=== PATIENT | male | born 1955 | race Hispanic/Latino ===

== ENCOUNTER 2016-05-23 11:14 | Emergency (ER) | payer OTHER ==
[2016-05-23 11:14] VITALS: BMI 21.2
[2016-05-23 11:23] VITALS: TEMP 98.1
--- NOTE | 2016-05-23 12:54 | C.PDOC ---
History Of Present Illness 61 y/o male, whose PMHx includes hypertension and hypercholesterolemia, presents to the ED complaining of pain in the last side of his neck that radiates to the left arm x 3 weeks. He also reports intermittent sensation of numbness in the left hand. Patient notes that for the last few days he has been feeling "sluggish," fatigued, and slightly short of breath. He states that he left work today because he was feeling so fatigued and he wanted to lie down. Patient denies any abdominal pain, chest pain, fever, chills, headache, rash, vomiting, diaphoresis, or other complaints. Time Seen by Provider: 05/23/16 12:42 Chief Complaint (Nursing): Upper Extremity Problem/Injury History Per: Patient History/Exam Limitations: no limitations Onset/Duration Of Symptoms: Days (3 weeks), Gradual, Persistent Current Symptoms Are (Timing): Still Present Recent travel outside of the [place]: No Past Medical History Reviewed: Historical Data, Nursing Documentation, Vital Signs Vital Signs: Last Vital Signs Temp 98.1 F 05/23/16 11:23 Pulse 83 05/23/16 15:08 Resp 18 05/23/16 15:08 BP 158/81 H 05/23/16 15:08 Pulse Ox 98 05/23/16 16:01 - Medical History PMH: Anxiety, Depression, Gastritis, GERD, HTN, Hypercholesterolemia Surgical History: No Surg Hx - [facility] Procedures GROUP PSYCHOTHERAPY (03/23/16) INDIVIDUAL PSYCHOTHERAPY, SUPPORTIVE (03/23/16) Family History: States: Unknown Family Hx - Social History Hx Tobacco Use: Yes Hx Alcohol Use: Yes Hx Substance Use: No - Immunization History Hx Tetanus Toxoid Vaccination: No Hx Influenza Vaccination: No Hx Pneumococcal Vaccination: No Review Of Systems Except As Marked, All Systems Reviewed And Found Negative. Constitutional: Positive for: Other (fatigue). Negative for: Fever, Chills, Sweats Cardiovascular: Negative for: Chest Pain Respiratory: Positive for: Shortness of Breath (mild) Gastrointestinal: Negative for: Vomiting, Abdominal Pain Musculoskeletal: Positive for: Neck Pain (left), Arm Pain (left) Skin: Negative for: Rash Neurological: Positive for: Numbness (left hand). Negative for: Headache Physical Exam - Physical Exam Appears: Non-toxic, No Acute Distress Skin: Normal Color, Warm, Dry, No Rash Head: Atraumatic, Normacephalic Eye(s): bilateral: Normal Inspection, PERRL, EOMI Neck: Normal ROM, No Midline Cervical Tenderness, No Paracervical Tenderness, Supple, Other (reproducible pain with contralateral movement of the head) Chest: Symmetrical Cardiovascular: Rhythm Regular Respiratory: Normal Breath Sounds, No Rales, No Rhonchi, No Wheezing Gastrointestinal/Abdominal: Normal Exam, Soft, No Tenderness Extremity: Normal ROM, No Tenderness, No Swelling Pulses: Left Radial: Normal, Right Radial: Normal Neurological/Psych: Oriented x3, Normal Speech, Normal Cognition, Normal Motor, Normal Sensation ED Course And Treatment - Laboratory Results Result Diagrams: 05/23/16 13:20 05/23/16 13:20 ECG: Interpreted By Me ECG Rhythm: Sinus Rhythm Interpretation Of ECG: left axis deviation, T inversion in lead III Rate From EC (bpm) O2 Sat by Pulse Oximetry: 98 (ra) Pulse Ox Interpretation: Normal - Other Rad Chest X-Ray X-Ray: Viewed By Me, Read By Radiologist Interpretation: Accession No. : [id number]. Patient Name / ID : EMMANUEL CHRISTIE / [id number]. Exam Date : 05/23/2016 13:13:41 ( Approved ). Study Comment : Sex / Age : M / 61Y. Creator : Manolo Zurita MD. Dictator : Manolo Zurita MD. Bit Sander : Popcorn Vendor : Manolo Zurita MD. Approver2 : Report Date : 05/23/2016 14:17:39. My Comment : . PROCEDURE: CHEST RADIOGRAPH, 1 VIEW. HISTORY: left neck pain, radiates to left arm. COMPARISON: [place] of made with prior study 03/21/2016. FINDINGS: LUNGS: Mild biapical pleural thickening with what may represent some mild adjacent the scarring in the lung apices bilaterally right greater than left. PLEURA: No pneumothorax or pleural fluid seen. CARDIOVASCULAR: Normal. OSSEOUS STRUCTURES: No significant abnormalities. VISUALIZED UPPER ABDOMEN: Normal. OTHER FINDINGS: None. IMPRESSION: Mild biapical pleural thickening with what may represent some mild adjacent the scarring in the lung apices bilaterally right greater than left. X-Ray, C-Spine X-Ray: Viewed By Me, Read By Radiologist Interpretation: Accession No. : [id number]. Patient Name / ID : EMMANUEL CHRISTIE / [id number]. Exam Date : 05/23/2016 13:16:43 ( Approved ). Study Comment : Sex / Age : M / 61Y. Creator : Manolo Zurita MD. Dictator : Manolo Zurita MD. Bit Sander : Popcorn Vendor : Manolo Zurita MD. Approver2 : Report Date : 05/23/2016 14:24:50. My Comment : . Cervical spine dated 05/23/2016. History: Neck pain radiating to left arm. Three views of the cervical spine performed. Note that the examination is somewhat limited due partial obscuration of tip of the odontoid by overlying occiput in the open- mouth projection. Current study reveals no evidence of acute displaced or compression fracture. . Minor chronic anterior stature loss of several cervical segments felt to be degenerative in origin. Vertebral bodies otherwise exhibit normal stature. The slight post to subluxation of C3 over C4. Remaining vertebral bodies otherwise exhibit normal alignment. Facets normally aligned. Multilevel degenerative spondylosis. Changes include varying degrees of disc space narrowing with anterolateral osteophyte formation as well as hypertrophic uncovertebral facets. Vascular calcifications both carotid circulations suspect. Impression: Limited study. No fracture. Multilevel degenerative spondylosis. Progress Note: EKG, chest x-ray, x-ray of the c-spine, blood work, and troponin were ordered. Patient was given Aspirin PO. Patient states that he needs to go home because he has something very important to do. Advised that symptoms may be due to a cardiac issue and patient was offered to stay for Tele observation. Risks were discussed with the patient who expresses understanding and states he would like to sign out against medical advice. Patient states he will return to the ED if he continues to feel unwell. Disposition - Disposition Disposition: AGAINST MEDICAL ADVICE Disposition Time: 15:55 Condition: GUARDED Additional Instructions: Follow up with your PMD within 1-2 days. Return to ED immediately if feel worse. Prescriptions: traMADol [Ultram] 50 mg PO Q6 #30 tab Instructions: Weakness (ED), Cervical Radiculopathy (ED) - Clinical Impression Clinical Impression: Neck pain, Weakness, Left arm numbness - PA / PUBLISHING EDITOR / Resident Statement MD/DO has reviewed & agrees with the documentation as recorded. - Scribe Statement The provider has reviewed the documentation as recorded by the Scribe (Micaela Rea) All medical record entries made by the Scribe were at my direction and personally dictated by me. I have reviewed the chart and agree that the record accurately reflects my personal performance of the history, physical exam, medical decision making, and the department course for this patient. I have also personally directed, reviewed, and agree with the discharge instructions and disposition.
[2016-05-23] MEDS ORDERED: Aspirin 325 mg EC Tablets PO STA (13:14)
[2016-05-23] MEDS ORDERED: Aspirin 325 mg EC Tablets PO ONE (13:23)
[2016-05-23 13:29] LABS: BASO % 0.5 % (0.0-2.0); EOS # 0.3 K/uL (0.0-0.7); EOS % 2.8 % (0.0-4.0); HEMATOCRIT 40.8 % (35.0-51.0); LYMPH # 1.8 K/uL (1.0-4.3); LYMPH % 17.6 % (20.0-40.0); MEAN CELL VOLUME 88.1 fL (80.0-94.0); MEAN CORPUSCULAR HEMOGLOBIN 29.2 pg (27.0-31.0); MEAN CORPUSCULAR HGB CONC 33.2 g/dL (33.0-37.0); MEAN PLATELET VOLUME 7.8 fL (7.2-11.7); MONO # 0.6 K/uL (0.0-0.8); MONO % 5.9 % (0.0-10.0); RED CELL DISTRIBUTION WIDTH 15.5 % (11.5-14.5)
[2016-05-23 13:36] LABS: CHLORIDE 102 mmol/L (98-107); SODIUM 141 mmol/L (132-148)
[2016-05-23 13:37] LABS: POTASSIUM 3.7 mmol/L (3.6-5.2)
[2016-05-23 13:39] LABS: ALB/GLOB RATIO 1.1 (1.0-2.1); ALKALINE PHOSPHATASE 71 U/L (38-126); AST/SGOT 21 U/L (17-59); BILIRUBIN,TOTAL 0.5 mg/dL (0.2-1.3); BLOOD UREA NITROGEN 23 mg/dL (9-20); CARBON DIOXIDE 28 mmol/L (22-30); GFR AFRICAN-AMERICAN > 60; TOTAL PROTEIN 7.6 g/dL (6.3-8.3)
[2016-05-23 13:40] LABS: ALT/SGPT 26 U/L (21-72); CALCIUM 8.9 mg/dl (8.6-10.4); GLUCOSE,RANDOM 102 mg/dL (75-110)
--- NOTE | 2016-05-23 14:19 | RAD ---
PROCEDURE: CHEST RADIOGRAPH, 1 VIEW HISTORY: left neck pain, radiates to left arm COMPARISON: [place] of made with prior study 03/21/2016 FINDINGS: LUNGS: Mild biapical pleural thickening with what may represent some mild adjacent the scarring in the lung apices bilaterally right greater than left. PLEURA: No pneumothorax or pleural fluid seen. CARDIOVASCULAR: Normal. OSSEOUS STRUCTURES: No significant abnormalities. VISUALIZED UPPER ABDOMEN: Normal. OTHER FINDINGS: None. IMPRESSION: Mild biapical pleural thickening with what may represent some mild adjacent the scarring in the lung apices bilaterally right greater than left.
--- NOTE | 2016-05-23 14:26 | RAD ---
Cervical spine dated 05/23/2016. History: Neck pain radiating to left arm. Three views of the cervical spine performed. Note that the examination is somewhat limited due partial obscuration of tip of the odontoid by overlying occiput in the open-mouth projection. Current study reveals no evidence of acute displaced or compression fracture. . Minor chronic anterior stature loss of several cervical segments felt to be degenerative in origin. Vertebral bodies otherwise exhibit normal stature. The slight post to subluxation of C3 over C4. Remaining vertebral bodies otherwise exhibit normal alignment. Facets normally aligned. Multilevel degenerative spondylosis. Changes include varying degrees of disc space narrowing with anterolateral osteophyte formation as well as hypertrophic uncovertebral facets. Vascular calcifications both carotid circulations suspect Impression: Limited study. No fracture. Multilevel degenerative spondylosis.
[2016-05-23 15:09] VITALS: BP 158/81; PULSE 83; RESP 18
[2016-05-23 15:40] VITALS: O2SAT 98
--- NOTE | 2016-05-24 11:58 | CARD ---
APPROVED REPORT EKG Measurement Heart [id number] <Conclusion> Normal sinus rhythm Left axis deviation Abnormal ECG
== END 2016-05-23 16:05 | disposition left against medical advice (07) ==
LOC: C.ER 11:14
DX: M54.2 Cervicalgia (principal); R53.1 Weakness; R20.0 Anesthesia of skin

== ENCOUNTER 2016-06-10 11:04 | Inpatient (IN) | payer OTHER ==
[2016-06-10 11:09] VITALS: BMI 24.3
--- NOTE | 2016-06-10 11:13 | C.PDOC ---
History Of Present Illness 61-year-old male, is brought to the emergency department by EMS with complaints of a burning chest pain, intermittent in nature, that is non-radiating and rated 9/10. Patient states he developed the pain this morning, and it worsened when he got to work, associated with dizziness and nausea; blood pressure 127/ 87. Patient was given Aspirin, Zofran and IVF en route. Patient is NPO since 23 :00 last night. Chief Complaint (Nursing): Chest Pain History Per: Patient History/Exam Limitations: no limitations Onset/Duration Of Symptoms: Days Current Symptoms Are (Timing): Still Present Past Medical History Reviewed: Historical Data, Nursing Documentation, Vital Signs Vital Signs: Last Vital Signs Temp 98.2 F 06/12/16 08:00 Pulse 77 06/12/16 08:24 Resp 20 06/12/16 08:00 BP 128/72 06/12/16 08:00 Pulse Ox 97 06/12/16 08:00 - Medical History PMH: Anxiety, Depression, Gastritis, GERD, HTN, Hypercholesterolemia Denies: Diabetes, Hepatitis, HIV, Seizures, Sexually Transmitted Disease - [facility] Procedures GROUP PSYCHOTHERAPY (03/23/16) INDIVIDUAL PSYCHOTHERAPY, SUPPORTIVE (03/23/16) Family History: States: Unknown Family Hx - Social History Hx Tobacco Use: Yes Hx Alcohol Use: Yes Hx Substance Use: No - Immunization History Hx Tetanus Toxoid Vaccination: No Hx Influenza Vaccination: No Hx Pneumococcal Vaccination: No Review Of Systems Except As Marked, All Systems Reviewed And Found Negative. Constitutional: Negative for: Fever, Chills Cardiovascular: Positive for: Chest Pain Respiratory: Negative for: Shortness of Breath Gastrointestinal: Negative for: Nausea, Vomiting Musculoskeletal: Negative for: Neck Pain, Back Pain Skin: Negative for: Rash Neurological: Positive for: Dizziness. Negative for: Weakness, Numbness, Headache Physical Exam - Physical Exam Appears: Non-toxic, No Acute Distress (mild distress) Skin: Warm, Dry, No Rash Head: Atraumatic, Normacephalic Eye(s): bilateral: Normal Inspection, PERRL, EOMI Nose: Normal Oral Mucosa: Moist Lips: Normal Appearing Neck: Normal ROM Chest: Symmetrical Cardiovascular: Rhythm Regular Respiratory: Normal Breath Sounds, No Accessory Muscle Use Extremity: Normal ROM, No Pedal Edema Neurological/Psych: Oriented x3, Normal Speech ED Course And Treatment - Laboratory Results Result Diagrams: 06/12/16 06:40 06/12/16 06:40 ECG: Interpreted By Me, Viewed By Me ECG Rhythm: Sinus Rhythm Interpretation Of ECG: EKbpm. ST elevation in II, III and AVF. T wave inverssion in AVL - Radiology CXR: Interpreted by Me, Viewed By Me CXR Interpretation: Yes: No Acute Disease (compared to 05/23/16) Progress - Re-Evaluation Re-evaluation Note: 06/10/16 11:12 DR BRUNER @ BEDSIDE, WILL TAKE TO FLAT BREAKDOWN PROCESSOR 06/10/16 11:34 PENDING CATH TEAM ARRIVAL. EXAM UNCH, VSS. CO PERSIST PAIN. WILL DOSE NARCOTIC, CONT IVF - Data Reviewed Data Reviewed: Lab, Diagnostic imaging, EKG, Old records - Critical Care Citical Care: Excluding Proc Time Critical Care Time: 90 minutes - Continuity of Care Discussed patient case with:: Patient Discussed pt. case with [employer] consultant/specialty: Cardiology Disposition Counseled Patient/Family Regarding: Studies Performed, Diagnosis - Disposition Disposition: HOSPITALIZED Disposition Time: 11:12 Condition: CRITICAL - POA Present On Arrival: None - Clinical Impression Clinical Impression: Acute myocardial infarction - Scribe Statement The provider has reviewed the documentation as recorded by the Scribe [place] All medical record entries made by the Scribe were at my direction and personally dictated by me. I have reviewed the chart and agree that the record accurately reflects my personal performance of the history, physical exam, medical decision making, and the department course for this patient. I have also personally directed, reviewed, and agree with the discharge instructions and disposition. Decision To Admit - Pt Status Changed To: Hospital Disposition Of: Inpatient - Admit Certification Admit to Inpatient:: After my assessment, the patient will require hospitalization for at least two midnights. This is because of the severity of symptoms shown, intensity of services needed, and/or the medical risk in this patient being treated as an outpatient. - InPatient: Physician Admission Certification: I certify that this patient requires 2 or more midnights of care for the following reason:: SEE NOTE - . Bed Request Type: ICU Admitting Physician: Jonel Mcdaniels Patient Diagnosis: Acute myocardial infarction
[2016-06-10 11:22] LABS: BASO # 0.1 K/uL (0.0-0.2); BASO % 0.5 % (0.0-2.0); EOS # 0.3 K/uL (0.0-0.7); LYMPH # 2.2 K/uL (1.0-4.3); MEAN PLATELET VOLUME 7.5 fL (7.2-11.7); MONO # 0.7 K/uL (0.0-0.8)
[2016-06-10 11:27] LABS: EOS % 2.9 % (0.0-4.0); HEMATOCRIT 42.2 % (35.0-51.0); LYMPH % 19.5 % (20.0-40.0); MEAN CELL VOLUME 88.6 fL (80.0-94.0); MEAN CORPUSCULAR HEMOGLOBIN 29.4 pg (27.0-31.0); MEAN CORPUSCULAR HGB CONC 33.2 g/dL (33.0-37.0); RED CELL DISTRIBUTION WIDTH 15.8 % (11.5-14.5); WHITE BLOOD COUNT 11.3 K/uL (4.8-10.8)
[2016-06-10 11:29] LABS: CHLORIDE 100 mmol/L (98-107); POTASSIUM 3.7 mmol/L (3.6-5.2); SODIUM 141 mmol/L (132-148)
--- NOTE | 2016-06-10 11:29 | RAD ---
PROCEDURE: CHEST RADIOGRAPH, 1 VIEW HISTORY: chest pain COMPARISON: 05/23/2016 FINDINGS: LUNGS: Biapical pleural thickening with upper lobe granulomatous changes. Mild venous congestion. Multiple wires and rounded opacity projects at the left base likely external. Clinical correlation. PLEURA: No pneumothorax or pleural fluid seen. CARDIOVASCULAR: Normal. OSSEOUS STRUCTURES: No significant abnormalities. VISUALIZED UPPER ABDOMEN: Normal. OTHER FINDINGS: None. IMPRESSION: Biapical pleural thickening with upper lobe granulomatous changes. Mild venous congestion. Multiple wires and rounded opacity projects at the left base likely external. Clinical correlation.
[2016-06-10 11:31] LABS: GFR AFRICAN-AMERICAN > 60
[2016-06-10] MEDS ORDERED: Heparin25000 units/250ml 1/2NS 250 ML IV ONE (11:33)
[2016-06-10] MEDS ORDERED: Sodium Chloride 0.9% 1,000 ML IV ONE (11:34)
[2016-06-10 11:52] LABS: ALB/GLOB RATIO 1.3 (1.0-2.1); ALKALINE PHOSPHATASE 85 U/L (38-126); ALT/SGPT 23 U/L (21-72); AST/SGOT 27 U/L (17-59); BILIRUBIN,TOTAL 0.9 mg/dL (0.2-1.3); BLOOD UREA NITROGEN 22 mg/dL (9-20); CARBON DIOXIDE 26 mmol/L (22-30); CHOLESTEROL 192 mg/dL (0-199); GLUCOSE,RANDOM 135 mg/dL (75-110); TOTAL PROTEIN 8.4 g/dL (6.3-8.3)
[2016-06-10 11:53] LABS: CALCIUM 9.3 mg/dl (8.6-10.4)
[2016-06-10] MEDS ORDERED: DiphenhydrAMINE 50 mg/ml Inj ONE (11:54)
[2016-06-10] MEDS ORDERED: Iohexol 350mgl/ml 50 ML ONE (12:02)
[2016-06-10] MEDS ORDERED: Iodixanol 320 MG/ML 200 ML BOTTLE IV ONE (12:11)
[2016-06-10] MEDS ORDERED: Iodixanol 320 MG/ML 100 ML BOTTLE IV ONE (12:55)
--- NOTE | 2016-06-10 14:15 | CP.PCM.CON ---
<Mayo Hummel - Last Filed: 06/10/16 17:56> History of Present Illness - History of Present Illness History of Present Illness: MEDICINE CONSULT NOTE - Dr. Bravo CC: recovering s/p cardiac cath, no acute complaints. HPI: 61-year-old male, with PMHx HTN, Hypercholesterolemia, Anxiety/Depression, Gastritis - is brought to the emergency department by EMS with complaints of a burning chest pain, intermittent in nature, that is non-radiating and rated 9/ 10. Patient states he woke up this morning feeling well, and developed sudden sharp chest pain when he got to work at 10am. He has never had chest pain like this before, and there is associated dizziness and nausea. Patient reports a recent 2 month history of on/off chest pain associated with lethargy/weakness, for which he has been taking ASA without relief. His PMD recommended a stress test and carrotid dopplers, which he has scheduled for a later date. Patient denies f/c, change in vision, SOB, abdominal pain, vomiting, d/c, dysuria, recent travel, or any additional complaints. ED course: Patient was given Aspirin, Zofran and IVF en route. EKG revealed ST elevation of inferior leads. He underwent catheterization with stent placement of RCA (100% occlusion), high grade occlusion of LAD. PMHx: HTN, Hypercholesterolemia, Anxiety/Depression, Gastritis (recent GI bleed) , Left Ear Tinnitus NKDA PSHx: denied FMHx: mother has DM Social: active marajuana use, one joint a day for > 20 years, current smoker with more than 20 pack years, ETOH 6-7 cans of beer in one session 1xper week ( 20yr history). PMD: Dr. Jeremias Montaño Review of Systems - Constitutional Constitutional: absent: Chills, Fever, Headache - EENT Eyes: absent: Blurred Vision, Change in Vision Ears: Dizziness. absent: Decreased Hearing, Ear Discharge Nose/Mouth/Throat: absent: Nasal Congestion, Nasal Discharge - Cardiovascular Cardiovascular: Chest Pain. absent: Dyspnea - Gastrointestinal Gastrointestinal: absent: Abdominal Pain, Constipation, Diarrhea, Nausea, Vomiting - Genitourinary Genitourinary: absent: Difficulty Urinating, Dysuria - Musculoskeletal Musculoskeletal: absent: Arthralgias, Atrophy - Integumentary Integumentary: absent: Dry Skin, Rash, Sores, Swelling - Neurological Neurological: Dizziness. absent: Numbness, Focal Weakness, Vertigo - Psychiatric Psychiatric: absent: Anhedonia, Anxiety, Depression - Hematologic/Lymphatic Hematologic: absent: Easy Bleeding, Easy Bruising, Lymphadenopathy Past Patient History - Infectious Disease Hx of Infectious Diseases: None - Past Social History Smoking Status: Current Some Days Smoker - CARDIAC Hx Hypercholesterolemia: Yes Hx Hypertension: Yes - PULMONARY Hx Tuberculosis: No - NEUROLOGICAL Hx Seizures: No - HEMATOLOGICAL/ONCOLOGICAL Hx Human Immunodeficiency Virus (HIV): No - GASTROINTESTINAL Hx Gastritis: Yes - GENITOURINARY/GYNECOLOGICAL Hx Sexually Transmitted Disorders: No - PSYCHIATRIC Hx Anxiety: Yes Hx Depression: Yes Hx Substance Use: No - SURGICAL HISTORY Hx Surgeries: Yes Other/Comment: ENDOSCOPY AND COLONOSCOPY - ANESTHESIA Hx Anesthesia: Yes Hx Anesthesia Reactions: No Meds Allergies/Adverse Reactions: Allergies Allergy/AdvReac Type Severity Reaction Status Date / Time No Known Allergies Allergy Verified 06/10/16 11:26 - Medications Medications: Current Medications Aspirin (Aspirin Chewable) 81 mg PO DAILY JENY Famotidine (Pepcid) 20 mg PO DAILY [facility] Lactated Ringer's (Lactated Ringer's) 1,000 mls @ 75 mls/hr IV .[id number] [facility] Stop: 06/11/16 08:00 Rosuvastatin Calcium (Crestor) 40 mg PO HS JENY Ticagrelor (Brilinta) 90 mg PO BID [facility] Physical Exam - Additional Findings Additional findings: - Constitutional Appears: Non-toxic, No Acute Distress - Head Exam Head Exam: NORMAL INSPECTION, NORMOCEPHALIC - Eye Exam Eye Exam: Normal appearance Pupil Exam: NORMAL ACCOMODATION - ENT Exam ENT Exam: Mucous Membranes Moist - Respiratory Exam Respiratory Exam: Clear to Auscultation Bilateral, NORMAL BREATHING PATTERN. absent: Rhonchi, Wheezes - Cardiovascular Exam Cardiovascular Exam: REGULAR RHYTHM, +S1, +S2. absent: Gallop, Rubs - GI/Abdominal Exam GI & Abdominal Exam: Normal Bowel Sounds, Soft. absent: Tenderness - Extremities Exam Extremities exam: Positive for: normal inspection. Negative for: pedal edema -R thigh bandage in tact (cath site) - Neurological Exam Neurological exam: Alert, Oriented x3 - Psychiatric Exam Psychiatric exam: Normal Mood, Normal Affect - Skin Skin Exam: Warm, Dry, Intact Results - Vital Signs Recent Vital Signs: Last Vital Signs Temp 98.6 F 06/10/16 11:19 Pulse 65 06/10/16 11:34 Resp 20 06/10/16 11:34 BP 153/99 H 06/10/16 11:34 Pulse Ox 100 06/10/16 11:34 - Labs Result Diagrams: 06/10/16 11:19 06/10/16 11:15 Labs: Laboratory Results - last 24 hr 06/10/16 06/10/16 06/10/16 11:15 11:16 11:19 WBC 11.3 H RBC 4.77 Hgb 14.0 Hct 42.2 MCV 88.6 MCH 29.4 MCHC 33.2 RDW 15.8 H Plt Count 339 MPV 7.5 Neut % (Auto) 71.1 Lymph % (Auto) 19.5 L Hancock % (Auto) 6.0 Eos % (Auto) 2.9 Baso % (Auto) 0.5 Neut # 8.0 H Lymph # 2.2 Hancock # 0.7 Eos # 0.3 Baso # 0.1 PT 10.8 INR 1.0 APTT 31 Sodium 141 Potassium 3.7 Chloride 100 Carbon Dioxide 26 Anion Gap 22 H BUN 22 H Creatinine 1.1 Est GFR ( Amer) > 60 Est GFR (Non-Af Amer) > 60 Random Glucose 135 H Calcium 9.3 Total Bilirubin 0.9 AST 27 ALT 23 Alkaline Phosphatase 85 Troponin I 0.0280 Total Protein 8.4 H Albumin 5.2 H D Globulin 3.6 Albumin/Globulin Ratio 1.3 Triglycerides 155 H Cholesterol 192 LDL Cholesterol Direct 113 HDL Cholesterol 35 Blood Type A POSITIVE Antibody Screen Negative Assessment & Plan - Assessment and Plan (Free Text) Assessment: STEMI -ASA 81 mg PO DAILY [facility] -EKG - ST elevation -Brilinta 90 mg PO BID [facility] -Dr. Mcdaniels, Cardiology on case -> patient will need evaluation fo CABG in near future (distal left main, proximal LAD, proximal L circumflex) -Cardiac Cath - Right coronary 100% occlusion; Severe dz of LAD, mild/mod dz of L main; Successful drug-eluting stent placement using 2 drug-eluting stents to the mid right coronary artery with jewish of DOUG 3 flow with residual mild to moderate diffuse disease in the mid and distal right coronary artery, posterior descending artery and PLS system. -Troponin negative x1 -f/u am labs -f/u RACHELLE - 7pm, 3am -F/u echo -f/u A1c Hyperlipidemia -Crestor 40 mg PO HS JENY HTN -BP 153/99 -Lopressor 25mg PO Q12 Leukocytosis -WBC 11.3 -f/u MRSA screen Anxiety/Depression -home med: Depakote DR 250mg PO BID Prophylaxis -Pepcid 20 mg PO DAILY JENY (prior GI bleed) -LR 75cc/hr -Pneumovax 23 Vaccine -Heart healthy diet - Date & Time Date: 06/10/16 Time: 13:15 <Mayo Bravo H - Last Filed: 06/11/16 08:13> Meds - Medications Medications: Current Medications Aspirin (Aspirin Chewable) 81 mg PO DAILY JENY Divalproex Sodium (Depakote Dr) 250 mg PO BID JENY Famotidine (Pepcid) 20 mg PO DAILY JENY Losartan Potassium (Cozaar) 25 mg PO DAILY JENY Metoprolol Tartrate (Lopressor) 25 mg PO Q12H JENY Rosuvastatin Calcium (Crestor) 40 mg PO HS JENY Ticagrelor (Brilinta) 90 mg PO BID JENY Trazodone HCl (Desyrel) 50 mg PO HS PRN PRN Reason: Insomnia Last Admin: 06/10/16 22:36 Dose: 50 mg Results - Vital Signs Recent Vital Signs: Last Vital Signs Temp 98.3 F 06/11/16 04:00 Pulse 66 06/11/16 06:11 Resp 11 L 06/11/16 06:11 BP 97/61 L 06/11/16 07:08 Pulse Ox 98 06/11/16 06:11 - Labs Result Diagrams: 06/11/16 06:37 06/11/16 06:34 Labs: Laboratory Results - last 24 hr 06/10/16 06/10/16 06/10/16 11:15 11:16 11:19 WBC 11.3 H RBC 4.77 Hgb 14.0 Hct 42.2 MCV 88.6 MCH 29.4 MCHC 33.2 RDW 15.8 H Plt Count 339 MPV 7.5 Neut % (Auto) 71.1 Lymph % (Auto) 19.5 L Hancock % (Auto) 6.0 Eos % (Auto) 2.9 Baso % (Auto) 0.5 Neut # 8.0 H Lymph # 2.2 Hancock # 0.7 Eos # 0.3 Baso # 0.1 PT 10.8 INR 1.0 APTT 31 Sodium 141 Potassium 3.7 Chloride 100 Carbon Dioxide 26 Anion Gap 22 H BUN 22 H Creatinine 1.1 Est GFR ( Amer) > 60 Est GFR (Non-Af Amer) > 60 Random Glucose 135 H Calcium 9.3 Phosphorus Magnesium Total Bilirubin 0.9 AST 27 ALT 23 Alkaline Phosphatase 85 Total Creatine Kinase CK-MB (Mass) Troponin I 0.0280 Troponin I, Quant Total Protein 8.4 H Albumin 5.2 H D Globulin 3.6 Albumin/Globulin Ratio 1.3 Triglycerides 155 H Cholesterol 192 LDL Cholesterol Direct 113 HDL Cholesterol 35 Blood Type A POSITIVE Antibody Screen Negative 06/10/16 06/11/16 06/11/16 20:30 06:34 06:37 WBC 11.6 H RBC 4.05 L Hgb 11.9 L D Hct 35.9 MCV 88.6 MCH 29.4 MCHC 33.1 RDW 15.8 H Plt Count 285 MPV 7.9 Neut % (Auto) 76.7 H Lymph % (Auto) 12.6 L Hancock % (Auto) 8.6 Eos % (Auto) 1.8 Baso % (Auto) 0.3 Neut # 8.9 H Lymph # 1.5 Hancock # 1.0 H Eos # 0.2 Baso # 0.0 PT INR APTT Sodium 140 Potassium 3.8 Chloride 103 Carbon Dioxide 26 Anion Gap 16 BUN 18 Creatinine 0.7 L Est GFR ( Amer) > 60 Est GFR (Non-Af Amer) > 60 Random Glucose 105 Calcium 8.1 L Phosphorus 2.5 Magnesium 2.1 Total Bilirubin AST ALT Alkaline Phosphatase Total Creatine Kinase 2381 H 1170 H CK-MB (Mass) 128 H 60.5 H Troponin I Troponin I, Quant 107.0000 H* 55.0000 H* Total Protein Albumin Globulin Albumin/Globulin Ratio Triglycerides Cholesterol LDL Cholesterol Direct HDL Cholesterol Blood Type Antibody Screen Attending/Attestation - Attestation I have personally seen and examined this patient.: Yes I have fully participated in the care of the patient.: Yes I have reviewed all pertinent clinical information: Yes Notes (Text): Medical attending: Patient was seen and examined by me, agrees the above note by medical service representative. The patient had family members present in the room as well he is status post cardiac cath. He says that the chest pain is completely resolved, he was really happy with the result. He's no longer short of breath he denied palpitations and he denied having abdominal pain as well. The patient had 2 stents placed in to the RCA, and the cardiac cath report by cardiology shows that he also has a lot of thick other extensive blockages as well and in the future will probably need additional studies and intervention In the meantime he remains on aspirin, statin, brillinta, and later to be started on things beta brandon and KAIDEN inhibitor as Thank you Mayo Bravo
--- NOTE | 2016-06-10 14:57 | CARDCATH ---
PROCEDURE DATE: 06/10/2016 The patient is a 61-year-old gentleman who reports history of hypertension, hyperlipidemia, and smoki ng. He denies history of cardiovascular problems in the past or any history of GI or bleeding. Jaye hernandez developed acute onset of chest tightness a few hours prior to presenting to the Emergency Room wher e EKG showed acute inferior ST segment elevation. Risks and benefits of urgent cardiac catheterizati on were explained to the patient and informed consent obtained. The patient was brought to the hot plate [employer] lab[employer] and prepped and draped in the usual sterile fashion and pre-sedated with Benadryl, morphine, foll owed by local anesthesia with lidocaine at the right femoral artery area. Using micropuncture techni que, a 6-Bangladeshi sheath was placed and diagnostic coronary angiography was commenced. The left main coronary artery was patent and tapered at the distal left main with 40-50% distal left main stenosis. There was a mild to moderate ectatic area at the origin of the LAD and left circumflex bifurcation. The ostial left circumflex vessel showed 80-90% disease and its remaining branches were small to medi um in caliber. The proximal LAD showed a 70-80% stenosis and the overall vessel size was normal donna karen and wrapped around the apex. Of note was collateral circulation to the distal RCA via the LAD and circumflex. The RCA was a very tortuous vessel that took an acute superior and inferior loop which had 100% steno sis in the mid portion. Based on the 100% occlusion of the RCA and inferior ST segment elevation, this was thought to be the culprit artery and we proceeded to commence with coronary intervention of the mid RCA. The patient was pretreated with aspirin and Brilinta and heparin bolus was given in the Emergency Christy m. ACT was confirmed to be under 250 and boluses of heparin were given to maintain ACT in the range of 250-350. A JR4 guide without sideholes was not available; therefore, a JR4 guide with sideholes w as initially used. However, given the acute angle of the right coronary artery, proper support could not be obtained. We elected to remove the 6-Bangladeshi guide and the system and swapped for a 7-Bangladeshi sheath followed by a 7-Bangladeshi JR4 guide without sideholes. A run-through wire was used to cross the lesion and the wire was placed in the distal right PDA. A 2.5 x 15 balloon was dilated in the area o f the stenosis to just beyond nominal pressures resulting in muslim of flow and visualization of the distal RCA which in itself showed diffuse disease at the level of the crux, the right PDA, the r ight PLS. A second wire was passed through the right coronary artery to provide adequate support for delivery of a 3.0 x 23 mm drug-eluting stent which was deployed successfully in the mid RCA and dila abelardo to above nominal pressures. Subsequent images showed a patent stent and improved flow to the rig ht coronary artery with probable distal embolization of the right PDA resulting in no flow at the lev el of the PDA PLS. Nitroglycerin boluses were given. Multiple injections were taken. ST segment el evation had resolved at this time. Distal to this stent, there was a subsequent stenosis that was se en and plan was to pass another balloon through that lesion and dilate. The wire was backed out of i ts original location and placed in a normal flowing secondary RV branch. A 2.5 x 15 balloon was succ essfully passed through the original stent and at the level of the stenosis just distal to the stent and dilated to 15 atmospheres. Better flow was seen. Of note, the distal RPDA occlusion resolved an d the entire right coronary artery system was again visualized. A second stent 3.0 [address] d at the level of this secondary balloon dilation site and deployed to 15 atmospheres followed by rem oving the balloon in small segments and further dilating the proximal edge of the stent as well as th e distal and proximal locations of the previous stent to ensure adequate opposition. Following image s showed a widely patent right coronary artery with residual diffuse coronary artery disease. ST seg ment elevations resolved. The patient's chest pain resolved. Left ventriculography revealed normal left ventricular systolic function. At the end of the procedur e, the patient's blood pressure was 130/76 with a heart rate of 70. CONCLUSION: 1. Acute inferior ST elevation myocardial infarction resulting from a 100% occlusion of a tortuous a nd very angulated right coronary artery which itself had diffuse disease beyond the 100% occlusion. 2. Severe coronary artery disease in the left anterior descending artery and left circumflex artery. 3. Mild to moderate distal left main disease. 4. Normal left ventricular systolic function, by ventriculogram, however, suggestion is to repeat wi th echo to adequately visualize wall motion. 5. Successful drug-eluting stent placement using 2 drug-eluting stents to the mid right coronary art gonzalez with muslim of DOUG 3 flow with residual mild to moderate diffuse disease in the mid and dis jaquan right coronary artery, posterior descending artery and PLS system. PLAN: 1. The patient will continue aspirin and Brilinta per ACC guidelines. 2. Suggestion is to begin treatment with beta blockers and KAIDEN inhibitors as tolerated by heart rate and blood pressure. 3. High dose statin therapy. 4. Monitor serial EKGs and continue to follow troponins to trend peak and recovery. 5. Echocardiogram to evaluate left ventricular systolic function and wall motion. 6. The patient will probably eventually need evaluation for coronary artery bypass grafting given th e acute nature and location of the distal left main, proximal LAD and proximal left circumflex lesion s. Jonel Mcdaniels MD cc: [id number] TT: 06/10/2016 14:56:27 id
[2016-06-10] MEDS: Lactated Ringer's 1,000 ML IV SCH (16:06)
--- NOTE | 2016-06-10 16:12 | CP.PCM.CON ---
History of Present Illness - History of Present Illness History of Present Illness: This is a 61 year old male who comes to the hospital via ambulance for chest pain (burning, intermittent, non radiating, no nausea, dizziness, radiation). EKG revealed ST elevation of inferior leads. He underwent catheterization with stent placement of RCA (100% occlusion), high grade occlusion of LAD. Short time pause during cath. ros while seen in ICU is negative PMH: HTN Hyperlipidemia Depression and anxiety Gastritis FH: Mother with DM social: actime marijuana use and 6 beers weekly for 20 years pe: bp 153/99 mmhg, hr 74 bpm, rr 14 bpm, o2 98%on 2 L nc, afebrile aaox3 patient lying in bed looks comfortable s1, s2 rrr lungs good bilateral air of entry abdomen soft non tender skin wnl a/p: STEMI: aspirin, brillanta, crestor, metoprolol, lisinopril. bp elevated IV fluids for contrast 1 L only. smoking counseling Episode of gi bleed past march most likely only due to gastritis, famotidine Past Patient History - Infectious Disease Hx of Infectious Diseases: None - Past Social History Smoking Status: Current Some Days Smoker - CARDIAC Hx Hypercholesterolemia: Yes Hx Hypertension: Yes - PULMONARY Hx Tuberculosis: No - NEUROLOGICAL Hx Seizures: No - HEENT Hx HEENT Problems: No - RENAL Hx Chronic Kidney Disease: No - ENDOCRINE/METABOLIC Hx Endocrine Disorders: No - HEMATOLOGICAL/ONCOLOGICAL Hx Human Immunodeficiency Virus (HIV): No - INTEGUMENTARY Hx Dermatological Problems: No - MUSCULOSKELETAL/RHEUMATOLOGICAL Hx Musculoskeletal Disorders: No Hx Falls: No - GASTROINTESTINAL Hx Gastritis: Yes - GENITOURINARY/GYNECOLOGICAL Hx Sexually Transmitted Disorders: No - PSYCHIATRIC Hx Anxiety: Yes Hx Depression: Yes Hx Substance Use: No - SURGICAL HISTORY Hx Surgeries: Yes Other/Comment: ENDOSCOPY AND COLONOSCOPY - ANESTHESIA Hx Anesthesia: Yes Hx Anesthesia Reactions: No Meds Allergies/Adverse Reactions: Allergies Allergy/AdvReac Type Severity Reaction Status Date / Time No Known Allergies Allergy Verified 06/10/16 11:26 - Medications Medications: Current Medications Aspirin (Aspirin Chewable) 81 mg PO DAILY JENY Famotidine (Pepcid) 20 mg PO DAILY JENY Lactated Ringer's (Lactated Ringer's) 1,000 mls @ 75 mls/hr IV .[id number] JENY Stop: 06/11/16 08:00 Last Admin: 06/10/16 16:06 Dose: 75 mls/hr Pneumococcal Polyvalent Vaccine (Pneumovax 23 Vaccine) 0.5 ml IM .ONCE ONE Stop: 06/12/16 10:01 Rosuvastatin Calcium (Crestor) 40 mg PO HS JENY Ticagrelor (Brilinta) 90 mg PO BID JENY Results - Vital Signs Recent Vital Signs: Last Vital Signs Temp 98.6 F 06/10/16 11:19 Pulse 65 06/10/16 11:34 Resp 20 06/10/16 11:34 BP 153/99 H 06/10/16 11:34 Pulse Ox 100 06/10/16 11:34 - Labs Result Diagrams: 06/10/16 11:19 06/10/16 11:15 Labs: Laboratory Results - last 24 hr 06/10/16 06/10/16 06/10/16 11:15 11:16 11:19 WBC 11.3 H RBC 4.77 Hgb 14.0 Hct 42.2 MCV 88.6 MCH 29.4 MCHC 33.2 RDW 15.8 H Plt Count 339 MPV 7.5 Neut % (Auto) 71.1 Lymph % (Auto) 19.5 L Haralson % (Auto) 6.0 Eos % (Auto) 2.9 Baso % (Auto) 0.5 Neut # 8.0 H Lymph # 2.2 Haralson # 0.7 Eos # 0.3 Baso # 0.1 PT 10.8 INR 1.0 APTT 31 Sodium 141 Potassium 3.7 Chloride 100 Carbon Dioxide 26 Anion Gap 22 H BUN 22 H Creatinine 1.1 Est GFR ( Amer) > 60 Est GFR (Non-Af Amer) > 60 Random Glucose 135 H Calcium 9.3 Total Bilirubin 0.9 AST 27 ALT 23 Alkaline Phosphatase 85 Troponin I 0.0280 Total Protein 8.4 H Albumin 5.2 H D Globulin 3.6 Albumin/Globulin Ratio 1.3 Triglycerides 155 H Cholesterol 192 LDL Cholesterol Direct 113 HDL Cholesterol 35 Blood Type A POSITIVE Antibody Screen Negative
[2016-06-11 06:46] LABS: BASO % 0.3 % (0.0-2.0); EOS # 0.2 K/uL (0.0-0.7); EOS % 1.8 % (0.0-4.0); HEMATOCRIT 35.9 % (35.0-51.0); LYMPH # 1.5 K/uL (1.0-4.3); LYMPH % 12.6 % (20.0-40.0); MEAN CELL VOLUME 88.6 fL (80.0-94.0); MEAN CORPUSCULAR HEMOGLOBIN 29.4 pg (27.0-31.0); MEAN CORPUSCULAR HGB CONC 33.1 g/dL (33.0-37.0); MEAN PLATELET VOLUME 7.9 fL (7.2-11.7); MONO % 8.6 % (0.0-10.0); RED CELL DISTRIBUTION WIDTH 15.8 % (11.5-14.5); WHITE BLOOD COUNT 11.6 K/uL (4.8-10.8)
[2016-06-11 06:56] LABS: CHLORIDE 103 mmol/L (98-107); POTASSIUM 3.8 mmol/L (3.6-5.2); SODIUM 140 mmol/L (132-148)
[2016-06-11 06:59] LABS: BLOOD UREA NITROGEN 18 mg/dL (9-20); CARBON DIOXIDE 26 mmol/L (22-30); GFR AFRICAN-AMERICAN > 60; GLUCOSE,RANDOM 105 mg/dL (75-110)
[2016-06-11 07:00] LABS: CALCIUM 8.1 mg/dl (8.6-10.4); MAGNESIUM 2.1 mg/dL (1.6-2.3); PHOSPHOROUS 2.5 mg/dL (2.5-4.5)
[2016-06-11] MEDS: Lactated Ringer's 1,000 ML IV SCH (07:01)
[2016-06-11] MEDS ORDERED: Potassium Chloride 20 mEq ER Tab PO ONE (07:47)
[2016-06-11] MEDS: Divalproex 250 mg DR Tab PO SCH ×2 (10:11→17:33)
--- NOTE | 2016-06-11 12:36 | CP.PCM.HP ---
History of Present Illness - History of Present Illness History of Present Illness: HPI: 61-year-old male, with PMHx HTN, Hypercholesterolemia, Anxiety/Depression, Gastritis - is brought to the emergency department by EMS with complaints of a burning chest pain, intermittent in nature, that is non-radiating and rated 9/ 10. Patient states he woke up this morning feeling well, and developed sudden sharp chest pain when he got to work at 10am. He has never had chest pain like this before, and there is associated dizziness and nausea. Patient reports a recent 2 month history of on/off chest pain associated with lethargy/weakness, for which he has been taking ASA without relief. His PMD recommended a stress test and carrotid dopplers, which he has scheduled for a later date. Patient denies f/c, change in vision, SOB, abdominal pain, vomiting, d/c, dysuria, recent travel, or any additional complaints. ED course: Patient was given Aspirin, Zofran and IVF en route. EKG revealed ST elevation of inferior leads. He underwent catheterization with stent placement of RCA (100% occlusion), high grade occlusion of LAD and LCX also noted. PMHx: HTN, Hypercholesterolemia, Anxiety/Depression, Gastritis (recent GI bleed) , Left Ear Tinnitus NKDA PSHx: denied FMHx: mother has DM Social: active marajuana use, one joint a day for > 20 years, current smoker with more than 20 pack years, ETOH 6-7 cans of beer in one session 1xper week ( 20yr history). PMD: Dr. Jeremias Montaño Present on Admission - Present on Admission Any Indicators Present on Admission: No History of DVT/PE: No History of Uncontrolled Diabetes: No Urinary Catheter: No Decubitus Ulcer Present: No History Surgical Site Infection Following: None Review of Systems - Review of Systems All systems: reviewed and no additional remarkable complaints except - Constitutional Constitutional: absent: Chills, Weight Loss, Weakness - EENT Eyes: absent: Change in Vision Nose/Mouth/Throat: absent: Epistaxis, Bleeding Gums, Mouth Pain - Cardiovascular Cardiovascular: As Per HPI - Respiratory Respiratory: As Per HPI - Gastrointestinal Gastrointestinal: Dyspepsia, Heartburn. absent: Coffee Ground Emesis, Hematochezia, Melena - Genitourinary Genitourinary: absent: Dysuria, Hematuria - Neurological Neurological: absent: Abnormal Speech, Numbness, Focal Weakness, Syncope - Psychiatric Psychiatric: As Per HPI - Endocrine Endocrine: absent: Change in Body Appearance - Hematologic/Lymphatic Hematologic: absent: Easy Bleeding Past Patient History - Infectious Disease Hx of Infectious Diseases: None - Past Social History Smoking Status: Heavy Smoker > 10 Cigarettes Daily Alcohol: > 2 Drinks/Day Drugs: Cannabis Home Situation {Lives}: With Family Domestic Violence: Negative - CARDIAC Hx Cardiac Disorders: No Hx Angina: No Hx Atrial Fibrillation: No Hx Cardia Arrhythmia: No Hx Circulatory Problems: No Hx Congestive Heart Failure: No Hx Heart Attack: No Hx Heart Murmur: No Hx Heart Transplant: No Hx Hypercholesterolemia: Yes Hx Hypertension: Yes Hx Hypotension: No Hx Internal Defibrillator: No Hx Mitral Valve Prolapse: No Hx Pacemaker: No Hx Peripheral Edema: No Hx Peripheral Vascular Disease: No - PULMONARY Hx Tuberculosis: No - NEUROLOGICAL Hx Seizures: No - HEENT Hx HEENT Problems: No - RENAL Hx Chronic Kidney Disease: No - ENDOCRINE/METABOLIC Hx Endocrine Disorders: No - HEMATOLOGICAL/ONCOLOGICAL Hx Human Immunodeficiency Virus (HIV): No - INTEGUMENTARY Hx Dermatological Problems: No - MUSCULOSKELETAL/RHEUMATOLOGICAL Hx Musculoskeletal Disorders: No Hx Falls: No - GASTROINTESTINAL Hx Gastritis: Yes - GENITOURINARY/GYNECOLOGICAL Hx Sexually Transmitted Disorders: No - PSYCHIATRIC Hx Anxiety: Yes Hx Depression: Yes Hx Substance Use: No - SURGICAL HISTORY Hx Surgeries: Yes Other/Comment: ENDOSCOPY AND COLONOSCOPY - ANESTHESIA Hx Anesthesia: Yes Hx Anesthesia Reactions: No Meds Allergies/Adverse Reactions: Allergies Allergy/AdvReac Type Severity Reaction Status Date / Time No Known Allergies Allergy Verified 06/10/16 11:26 Physical Exam - Constitutional Appears: No Acute Distress - Head Exam Head Exam: ATRAUMATIC, NORMOCEPHALIC - Eye Exam Eye Exam: EOMI, Normal appearance, PERRL - ENT Exam ENT Exam: Mucous Membranes Moist, Normal Oropharynx - Neck Exam Neck exam: Negative for: Tenderness, Thyromegaly - Respiratory Exam Respiratory Exam: Clear to Auscultation Bilateral. absent: Rales, Rhonchi, Wheezes - Cardiovascular Exam Cardiovascular Exam: REGULAR RHYTHM, +S1, +S2. absent: JVD, +S4 - GI/Abdominal Exam GI & Abdominal Exam: Normal Bowel Sounds, Soft. absent: Tenderness - Extremities Exam Extremities exam: Positive for: normal inspection, pedal pulses present. Negative for: calf tenderness, pedal edema, tenderness - Back Exam Back exam: absent: CVA tenderness (L), CVA tenderness (R) - Neurological Exam Neurological exam: Alert, CN II-XII Intact, Oriented x3 - Psychiatric Exam Psychiatric exam: Normal Affect, Normal Mood - Skin Skin Exam: Normal Color, Warm Results - Vital Signs Recent Vital Signs: Last Vital Signs Temp 97.7 F 06/11/16 08:00 Pulse 65 06/11/16 09:12 Resp 16 06/11/16 09:12 BP 99/57 L 06/11/16 09:12 Pulse Ox 97 06/11/16 09:00 - Labs Result Diagrams: 06/11/16 06:37 06/11/16 06:34 Labs: Laboratory Results - last 24 hr 06/10/16 06/11/16 06/11/16 20:30 06:34 06:37 WBC 11.6 H RBC 4.05 L Hgb 11.9 L D Hct 35.9 MCV 88.6 MCH 29.4 MCHC 33.1 RDW 15.8 H Plt Count 285 MPV 7.9 Neut % (Auto) 76.7 H Lymph % (Auto) 12.6 L [place] % (Auto) 8.6 Eos % (Auto) 1.8 Baso % (Auto) 0.3 Neut # 8.9 H Lymph # 1.5 [place] # 1.0 H Eos # 0.2 Baso # 0.0 Sodium 140 Potassium 3.8 Chloride 103 Carbon Dioxide 26 Anion Gap 16 BUN 18 Creatinine 0.7 L Est GFR ( Amer) > 60 Est GFR (Non-Af Amer) > 60 Random Glucose 105 Calcium 8.1 L Phosphorus 2.5 Magnesium 2.1 Total Creatine Kinase 2381 H 1170 H CK-MB (Mass) 128 H 60.5 H Troponin I, Quant 107.0000 H* 55.0000 H* - EKG Data EKG Interpreted by: Myself (PRE CATH EKG 06/10/16: nfero=posterior STEMI, NSR; POST CATH EKG 06/10/16: Resolution of STEMI, infero-posterior infarct, NSR) - Imaging and Cardiology Chest x-ray Status: Image reviewed by me (06/10/16: Biapical pleural thickening with upper lobe granulomatous changes. Mild venous congestion. Multiple wires and rounded opacity projects at the left base likely external. Clinical correlation.) Assessment & Plan - Assessment and Plan (Free Text) Assessment: 61 y/o HTN, LIPIDS, SMOKER and acute inf-post [place] 06/10/16: Rx with urgent cath and ANDREY stentsx2 to mid RCA with resolution of CP and ST elevation * Residual surgical obstructive disease remains in distal LM, prox LAD and prox LCX * Troponin trending down 0.02 > 107 > 55 * Creat & K+ WNL * H/H wnl * R. groin without any complications after sheath removal * TELE: NSR * ASX: no CP, SOB or FEVER * LDL 114, TRG 155 plan: ASA 81, Brillinta 90 BID, Crestor 40; Losartan 25, inc Metoprolol to 25 BID if BP improves to >100 mmHg Agree with pepcid given hx of gastritis Tx to TELE when bed available Possible d/c on day 4 post [place] with plans to optimially medicate him and elective referral for CABG for remaining CAD based on clinical course. Ideally would like to wait at least 3 months post stent implantation unless clinically warranted prior. - Date & Time Date: 06/11/16 Time: 12:46 Decision To Admit - . Bed Request Type: ICU Admitting Physician: Jonel Mcdaniels
--- NOTE | 2016-06-11 13:43 | CP.PCM.PN ---
<Mayo Hummel - Last Filed: 06/11/16 17:26> Subjective - Date & Time of Evaluation Date of Evaluation: 06/11/16 Time of Evaluation: 07:30 - Subjective Subjective: PGY1 Medicine Note - Dr. Bravo Patient seen and examined at bedside. No overnight events per nursing. Patient denies f/c, change in vision, SOB, abdominal pain, vomiting, d/c, dysuria, recent travel, or any additional complaints. Objective - Vital Signs/Intake and Output Vital Signs (last 24 hours): Temp Pulse Resp BP Pulse Ox 98.1 F 84 21 114/72 99 06/11/16 12:00 06/11/16 12:00 06/11/16 12:00 06/11/16 11:12 06/11/16 11:12 Intake and Output: 06/11/16 06/11/16 06:59 18:59 Intake Total 1455 300 Output Total 750 Balance 705 300 - Medications Medications: Current Medications Aspirin (Aspirin Chewable) 81 mg PO DAILY [facility] Last Admin: 06/11/16 10:09 Dose: 81 mg Divalproex Sodium (Depakote Dr) 250 mg PO BID [facility] Last Admin: 06/11/16 10:11 Dose: 250 mg Famotidine (Pepcid) 20 mg PO DAILY [facility] Last Admin: 06/11/16 10:09 Dose: 20 mg Losartan Potassium (Cozaar) 12.5 mg PO DAILY [facility] Metoprolol Tartrate (Lopressor) 12.5 mg PO Q12H [facility] Rosuvastatin Calcium (Crestor) 40 mg PO HS [facility] Ticagrelor (Brilinta) 90 mg PO BID [facility] Last Admin: 06/11/16 10:09 Dose: 90 mg Trazodone HCl (Desyrel) 50 mg PO HS PRN PRN Reason: Insomnia Last Admin: 06/10/16 22:36 Dose: 50 mg - Labs Labs: 06/11/16 06:37 06/11/16 06:34 PT 10.8 SECONDS (9.7-12.2) 06/10/16 11:15 INR 1.0 06/10/16 11:15 APTT 31 SECONDS (21-34) 06/10/16 11:15 - Additional Findings Additional findings: - Constitutional Appears: Non-toxic, No Acute Distress - Head Exam Head Exam: NORMAL INSPECTION, NORMOCEPHALIC - Eye Exam Eye Exam: Normal appearance Pupil Exam: NORMAL ACCOMODATION - ENT Exam ENT Exam: Mucous Membranes Moist - Respiratory Exam Respiratory Exam: Clear to Auscultation Bilateral, NORMAL BREATHING PATTERN. absent: Rhonchi, Wheezes - Cardiovascular Exam Cardiovascular Exam: REGULAR RHYTHM, +S1, +S2. absent: Gallop, Rubs - GI/Abdominal Exam GI & Abdominal Exam: Normal Bowel Sounds, Soft. absent: Tenderness - Extremities Exam Extremities exam: Positive for: normal inspection. Negative for: pedal edema -R thigh bandage in tact (cath site) - Neurological Exam Neurological exam: Alert, Oriented x3 - Psychiatric Exam Psychiatric exam: Normal Mood, Normal Affect - Skin Skin Exam: Warm, Dry, Intact Assessment and Plan - Assessment and Plan (Free Text) Assessment: Disposition: -Per Dr. Mcdaniels: Possible d/c on day 4 post [place] with plans to optimially medicate him and elective referral for CABG for remaining CAD based on clinical course. Ideally would like to wait at least 3 months post stent implantation unless clinically warranted prior. STEMI 06/11: Patient doing well. -ASA 81 mg PO DAILY [facility] -Brilinta 90 mg PO BID [facility] -EKG - ST elevation -Dr. Mcdaniels, Cardiology on case -> patient will need evaluation fo CABG in near future (distal left main, proximal LAD, proximal L circumflex) -Cardiac Cath - Right coronary 100% occlusion; Severe dz of LAD, mild/mod dz of L main; Successful drug-eluting stent placement using 2 drug-eluting stents to the mid right coronary artery with synagogue of DOUG 3 flow with residual mild to moderate diffuse disease in the mid and distal right coronary artery, posterior descending artery and PLS system. -Troponin negative x1 -RACHELLE - 7pm, 3am - elevated, downtrending s/p STEMI with cath. -F/u echo (not yet performed) -f/u A1c (will result 06/12) Hyperlipidemia -Crestor 40 mg PO HS JENY HTN -BP 153/99 -Losartan 12.5mg PO qd -Lopressor 12.5mg PO q12h Leukocytosis 06/11: WBC 11.6 -f/u MRSA screen Anxiety/Depression -home med: Depakote DR 250mg PO BID -Trazodone 50mg PO HS PRN, insomnia Prophylaxis -Pepcid 20 mg PO DAILY [facility] (prior GI bleed) -Pneumovax 23 Vaccine -Heart healthy diet <Mayo Bravo - Last Filed: 06/11/16 18:22> Objective - Vital Signs/Intake and Output Vital Signs (last 24 hours): Temp Pulse Resp BP Pulse Ox 98.1 F 79 21 137/75 97 06/11/16 12:00 06/11/16 16:00 06/11/16 16:00 06/11/16 15:13 06/11/16 16:00 Intake and Output: 06/11/16 06/11/16 06:59 18:59 Intake Total 1455 540 Output Total 750 300 Balance 705 240 - Medications Medications: Current Medications Aspirin (Aspirin Chewable) 81 mg PO DAILY [facility] Last Admin: 06/11/16 10:09 Dose: 81 mg Divalproex Sodium (Depakote Dr) 250 mg PO BID [facility] Last Admin: 06/11/16 17:33 Dose: Not Given Famotidine (Pepcid) 20 mg PO DAILY [facility] Last Admin: 06/11/16 10:09 Dose: 20 mg Losartan Potassium (Cozaar) 12.5 mg PO DAILY [facility] Metoprolol Tartrate (Lopressor) 12.5 mg PO Q12H [facility] Last Admin: 06/11/16 17:32 Dose: 12.5 mg Rosuvastatin Calcium (Crestor) 40 mg PO HS [facility] Ticagrelor (Brilinta) 90 mg PO BID [facility] Last Admin: 06/11/16 17:32 Dose: 90 mg Trazodone HCl (Desyrel) 50 mg PO HS PRN PRN Reason: Insomnia Last Admin: 06/10/16 22:36 Dose: 50 mg - Labs Labs: 06/11/16 06:37 06/11/16 06:34 PT 10.8 SECONDS (9.7-12.2) 06/10/16 11:15 INR 1.0 06/10/16 11:15 APTT 31 SECONDS (21-34) 06/10/16 11:15 Attending/Attestation - Attestation I have personally seen and examined this patient.: Yes I have fully participated in the care of the patient.: Yes I have reviewed all pertinent clinical information, including history, physical exam and plan: Yes Notes (Text): Medical attending: Patient was seen and examined by me, agrees the above note by medical record clerk. The patient is status post cardiac cath with stenting done as mentioned above the resident note. Currently he is on Brillinta, ASA, Statin medication, and beta brandon, and ARB class medications The patient reports that he does not have any chest pain at this time, he denied palpitations, he does also denied difficulty breathing. Also denied abdominal pain. The area of the femoral area of the cardiac cath appears to be clean dry and intact dressing. We encouraged the patient to stop smoking, diet and lifestyle modifications are very important we emphasized this time as well. Thank you very much, Mayo Bravo
[2016-06-11 16:28] LABS: RBC URINE 3 /hpf (0-3); URINE BILIRUBIN NEGATIVE (NEGATIVE); URINE BLOOD NEGATIVE (NEGATIVE); URINE COLOR Yellow (YELLOW); URINE GLUCOSE (UA) NORMAL (Normal); URINE KETONE NEGATIVE (NEGATIVE); URINE LEUKOCYTE ESTERASE NEG Leu/uL (Negative); URINE PROTEIN NEGATIVE (NEGATIVE); URINE UROBILINOGEN NORMAL mg/dL (0.2-1.0)
[2016-06-12 06:44] LABS: BASO # 0.1 K/uL (0.0-0.2); BASO % 0.8 % (0.0-2.0); EOS # 0.4 K/uL (0.0-0.7); EOS % 3.3 % (0.0-4.0); HEMATOCRIT 36.9 % (35.0-51.0); LYMPH # 1.7 K/uL (1.0-4.3); LYMPH % 13.3 % (20.0-40.0); MEAN CELL VOLUME 88.3 fL (80.0-94.0); MEAN CORPUSCULAR HGB CONC 32.8 g/dL (33.0-37.0); MEAN PLATELET VOLUME 7.6 fL (7.2-11.7); MONO # 1.2 K/uL (0.0-0.8); MONO % 9.2 % (0.0-10.0); RED CELL DISTRIBUTION WIDTH 15.5 % (11.5-14.5); WHITE BLOOD COUNT 12.6 K/uL (4.8-10.8)
[2016-06-12 06:53] LABS: CHLORIDE 102 mmol/L (98-107); SODIUM 140 mmol/L (132-148)
[2016-06-12 06:54] LABS: POTASSIUM 3.6 mmol/L (3.6-5.2)
[2016-06-12 06:55] LABS: BILIRUBIN,TOTAL 0.9 mg/dL (0.2-1.3); GFR AFRICAN-AMERICAN > 60
[2016-06-12 06:56] LABS: ALB/GLOB RATIO 1.3 (1.0-2.1); ALKALINE PHOSPHATASE 63 U/L (38-126); ALT/SGPT 24 U/L (21-72); AST/SGOT 89 U/L (17-59); BLOOD UREA NITROGEN 14 mg/dL (9-20); CALCIUM 8.1 mg/dl (8.6-10.4); CARBON DIOXIDE 25 mmol/L (22-30); GLUCOSE,RANDOM 112 mg/dL (75-110); PHOSPHOROUS 2.4 mg/dL (2.5-4.5); TOTAL PROTEIN 6.6 g/dL (6.3-8.3)
[2016-06-12 06:57] LABS: MAGNESIUM 2.2 mg/dL (1.6-2.3)
--- NOTE | 2016-06-12 08:03 | CP.PCM.PN ---
Subjective - Date & Time of Evaluation Date of Evaluation: 06/12/16 Time of Evaluation: 08:01 - Subjective Subjective: No CP or SOB NSR, no arrythmias S/P ACUTE INFERIOR STEMI 06/10/16 Rx with ANDREY to RCA Objective - Vital Signs/Intake and Output Vital Signs (last 24 hours): Temp Pulse Resp BP Pulse Ox 98.7 F 87 18 112/76 97 06/12/16 06:00 06/12/16 06:00 06/12/16 06:00 06/12/16 06:00 06/11/16 16:00 Intake and Output: 06/12/16 06/12/16 06:59 18:59 Intake Total 800 Output Total 1000 Balance -200 - Medications Medications: Current Medications Aspirin (Aspirin Chewable) 81 mg PO DAILY [facility] Last Admin: 06/11/16 10:09 Dose: 81 mg Famotidine (Pepcid) 20 mg PO DAILY [facility] Last Admin: 06/11/16 10:09 Dose: 20 mg Losartan Potassium (Cozaar) 12.5 mg PO DAILY [facility] Metoprolol Tartrate (Lopressor) 12.5 mg PO Q12H [facility] Last Admin: 06/12/16 06:39 Dose: 12.5 mg Rosuvastatin Calcium (Crestor) 40 mg PO HS [facility] Last Admin: 06/11/16 22:56 Dose: 40 mg Ticagrelor (Brilinta) 90 mg PO BID [facility] Last Admin: 06/11/16 17:32 Dose: 90 mg - Labs Labs: 06/12/16 06:40 06/12/16 06:40 PT 10.8 SECONDS (9.7-12.2) 06/10/16 11:15 INR 1.0 06/10/16 11:15 APTT 31 SECONDS (21-34) 06/10/16 11:15 - Constitutional Appears: No Acute Distress - Head Exam Head Exam: ATRAUMATIC, NORMAL INSPECTION, NORMOCEPHALIC - Eye Exam Eye Exam: EOMI, Normal appearance, PERRL - ENT Exam ENT Exam: Mucous Membranes Moist, Normal Exam - Neck Exam Neck Exam: Full ROM, Normal Inspection - Respiratory Exam Respiratory Exam: Clear to Ausculation Bilateral, NORMAL BREATHING PATTERN - Cardiovascular Exam Cardiovascular Exam: REGULAR RHYTHM - GI/Abdominal Exam GI & Abdominal Exam: Normal Bowel Sounds - Extremities Exam Extremities Exam: Full ROM, Normal Capillary Refill, Normal Inspection - Neurological Exam Neurological Exam: Alert, Awake, Oriented x3 - Psychiatric Exam Psychiatric exam: Normal Affect, Normal Mood - Skin Skin Exam: Normal Color, Warm Assessment and Plan - Assessment and Plan (Free Text) Assessment: 61 y/o HTN, LIPIDS, SMOKER and acute inf-post [place] 06/10/16: Rx with urgent cath and ANDREY stentsx2 to mid RCA with resolution of CP and ST elevation * Residual surgical obstructive disease remains in distal LM, prox LAD and prox LCX * Troponin trending down 0.02 > 107 > 55 > 17 * Creat & K+ WNL * H/H wnl * R. groin without any complications after sheath removal * TELE: NSR * ASX: no CP, SOB or FEVER * LDL 114, TRG 155 plan: ASA 81, Brillinta 90 BID, Crestor 40; Losartan 25, inc Metoprolol to 25 BID if BP improves to >100 mmHg Agree with pepcid given hx of gastritis Tx to TELE when bed available Possible d/c on day 4 post [place] with plans to optimially medicate him and elective referral for CABG for remaining CAD based on clinical course. Ideally would like to wait at least 3 months post stent implantation unless clinically warranted prior.
--- NOTE | 2016-06-12 08:28 | CP.PCM.PN ---
<Valente Santo - Last Filed: 06/12/16 13:46> Subjective - Date & Time of Evaluation Date of Evaluation: 06/12/16 Time of Evaluation: 08:50 - Subjective Subjective: PGY-1 Medicine Progress Note for Dr. Kelly Patient seen and examined at bedside. No acute event overnight. Patient sitting up in bed eating breakfast. Patient stated that he is feeling great today. He is much better than yesterday. Patient has no acute complaints. He is tolerating diet and having BMs. Denies fever/chills, cp, SOB, palpitations, abdominal pain, n/v/d, constipation, and incontinence. Objective - Vital Signs/Intake and Output Vital Signs (last 24 hours): Temp Pulse Resp BP Pulse Ox 98.7 F 87 18 112/76 97 06/12/16 06:00 06/12/16 06:00 06/12/16 06:00 06/12/16 06:00 06/11/16 16:00 Intake and Output: 06/12/16 06/12/16 06:59 18:59 Intake Total 800 Output Total 1000 Balance -200 - Medications Medications: Current Medications Aspirin (Aspirin Chewable) 81 mg PO DAILY [facility] Last Admin: 06/11/16 10:09 Dose: 81 mg Famotidine (Pepcid) 20 mg PO DAILY [facility] Last Admin: 06/11/16 10:09 Dose: 20 mg Losartan Potassium (Cozaar) 12.5 mg PO DAILY [facility] Metoprolol Tartrate (Lopressor) 12.5 mg PO Q12H [facility] Last Admin: 06/12/16 06:39 Dose: 12.5 mg Rosuvastatin Calcium (Crestor) 40 mg PO HS [facility] Last Admin: 06/11/16 22:56 Dose: 40 mg Ticagrelor (Brilinta) 90 mg PO BID [facility] Last Admin: 06/11/16 17:32 Dose: 90 mg - Labs Labs: 06/12/16 06:40 06/12/16 06:40 PT 10.8 SECONDS (9.7-12.2) 06/10/16 11:15 INR 1.0 06/10/16 11:15 APTT 31 SECONDS (21-34) 06/10/16 11:15 - Constitutional Appears: No Acute Distress - Head Exam Head Exam: ATRAUMATIC, NORMOCEPHALIC - Eye Exam Eye Exam: EOMI, Normal appearance Pupil Exam: PERRL - ENT Exam ENT Exam: Mucous Membranes Moist - Neck Exam Neck Exam: Normal Inspection - Respiratory Exam Respiratory Exam: Clear to Ausculation Bilateral, NORMAL BREATHING PATTERN - Cardiovascular Exam Cardiovascular Exam: RRR, +S1, +S2 - GI/Abdominal Exam GI & Abdominal Exam: Soft, Normal Bowel Sounds. absent: Tenderness - Extremities Exam Extremities Exam: Normal Capillary Refill - Back Exam Back Exam: absent: CVA tenderness (L), CVA tenderness (R) - Neurological Exam Neurological Exam: Alert, Awake, CN II-XII Intact, Normal Gait, Oriented x3 - Psychiatric Exam Psychiatric exam: Normal Affect, Normal Mood - Skin Skin Exam: Dry, Intact, Normal Color, Warm Additional comments: Cath site in R groin dressed, clean/dry/intact without hematoma Assessment and Plan - Assessment and Plan (Free Text) Plan: STEMI ASA 81 mg PO DAILY [facility] Brilinta 90 mg PO BID [facility] EKG - ST elevation Dr. Mcdaniels, Cardiology on case -> patient will need evaluation fo CABG in near future (distal left main, proximal LAD, proximal L circumflex) Cardiac Cath - Right coronary 100% occlusion; Severe dz of LAD, mild/mod dz of L main; Successful drug-eluting stent placement using 2 drug-eluting stents to the mid right coronary artery with synagogue of DOUG 3 flow with residual mild to moderate diffuse disease in the mid and distal right coronary artery, posterior descending artery and PLS system. F/u echo HA1C 6.4 Hyperlipidemia Crestor 40 mg PO HS [facility] HTN Losartan 12.5mg PO qd Lopressor 12.5mg PO q12h Monitor BP Leukocytosis WBC 12.6 f/u MRSA screen Anxiety/Depression home med: Depakote DR 250mg PO BID Trazodone 50mg PO HS PRN, insomnia Prophylactic Measures Pepcid 20 mg PO DAILY [facility] (prior GI bleed) Pneumovax 23 Vaccine Heart healthy diet Disposition: Per Dr. Mcdaniels: Possible d/c on day 4 post HI with plans to optimially medicate him and elective referral for CABG for remaining CAD based on clinical course. Ideally would like to wait at least 3 months post stent implantation unless clinically warranted prior. <Sandrita Kelly V - Last Filed: 06/12/16 15:37> Objective - Vital Signs/Intake and Output Vital Signs (last 24 hours): Temp Pulse Resp BP Pulse Ox 98.2 F 73 20 114/72 97 06/12/16 08:00 06/12/16 10:00 06/12/16 10:00 06/12/16 10:00 06/12/16 08:00 Intake and Output: 06/12/16 06/12/16 06:59 18:59 Intake Total 800 300 Output Total 1000 100 Balance -200 200 - Medications Medications: Current Medications Aspirin (Aspirin Chewable) 81 mg PO DAILY [facility] Last Admin: 06/12/16 10:07 Dose: 81 mg Enoxaparin Sodium (Lovenox) 40 mg SC DAILY [facility] Famotidine (Pepcid) 20 mg PO DAILY [facility] Last Admin: 06/12/16 10:07 Dose: 20 mg Losartan Potassium (Cozaar) 12.5 mg PO DAILY [facility] Last Admin: 06/12/16 10:11 Dose: 12.5 mg Metoprolol Tartrate (Lopressor) 12.5 mg PO Q12H [facility] Last Admin: 06/12/16 06:39 Dose: 12.5 mg Rosuvastatin Calcium (Crestor) 40 mg PO HS [facility] Last Admin: 06/11/16 22:56 Dose: 40 mg Ticagrelor (Brilinta) 90 mg PO BID [facility] Last Admin: 06/12/16 10:07 Dose: 90 mg - Labs Labs: 06/12/16 06:40 06/12/16 06:40 PT 10.8 SECONDS (9.7-12.2) 06/10/16 11:15 INR 1.0 06/10/16 11:15 APTT 31 SECONDS (21-34) 06/10/16 11:15 Attending/Attestation - Attestation I have personally seen and examined this patient.: Yes I have fully participated in the care of the patient.: Yes I have reviewed all pertinent clinical information, including history, physical exam and plan: Yes Notes (Text): Patient seen, examined and case discussed with day-time resident. Patient was transferred to the hospitalist service this morning from the property officer; spoke with nurse regarding transfer request. patient transferred from ICU to telemetry bed. patient seen on . Patient reports he is feeling energetic in spite of his cardiac status. Patient reports he hasn't slept well for the past two nights. Patient and I had a lengthy discussion regarding tobacco use and cessation in light of his coronary artery disease and risks associated with smoking including cancer and . Patient is pending echocardiogram. Assessment/Plan 1) STEMI; Coronary artery disease POD 2 s/p cath (06/10) * Aspirin 81mg PO daily * Cozaar 12.5mg PO daily * Lopressor 12.5mg PO BID-->increased to Lopressor 25mg PO bid * Crestor 40mg POqHS * Brilinta 90mg PO Bid * Per cath report 06/10/16: 100% occlusion of tortous and very angulated RCA; severe coronary artery disease in LAD and left circumflex artery; normal left ventricular systolic function; placement of 2 drug-eluting stents in mid right RCA and distal RCA/PDA * Lovenox 40mg subq daily * Cardiology (Dr. Vásquez) on board-->help appreciated * Troponin downtrending * hemglobin: 6.4; will need repeat a1c in one year given patient has high chance in becoming diabetic; diet and exercise modifications * Cholestrol: 192, LDL:113 HDL:35 T * per cardiology: Possible d/c on day 4 post HI with plans to optimially medicate him and elective referral for CABG for remaining CAD based on clinical course. Ideally would like to wait at least 3 months post stent implantation unless clinically warranted prior * Chest xray (06/10/16): biapical pleural thickening with upper lobe granulomatous changes. mild venous congestion. multiple wries and rounded opacity projects at the left bas likely external. 2) Hyperlipidemia * Crestor 40 mg PO HS [facility] * Cholestrol: 192, LDL:113 HDL:35 T 3) HTN * Losartan 12.5mg PO qdaily * Lopressor 12.5mg PO q12h-->increased to Lopressor 25mg PO bid 4) Leukocytosis * likely post-inflammatory given STEMI * procalcitonin <0.05 * afebrile * MRSA: not detected 5) Anxiety/Depression * home med: Depakote DR 250mg PO BID * Trazodone 50mg PO HS PRN, insomnia 6) Tobacco use * counselled at bedside about tobacco cessation * Started on Nicotine patch to curb cessation 7) Abnormal UA * Difllucan 100mg PO daily for 3 days for yeast in urine 8) Prophylaxis * Pepcid 20 mg PO daily for GI ppx (hx of gastritis) * Lovenox 40mg subq daily for DVT ppx * SCDS b/l
[2016-06-12 08:35] VITALS: RESP 20
[2016-06-12] MEDS ORDERED: Pneumococcal 23-Valent Vaccine IM ONE (10:00)
[2016-06-12] MEDS: Losartan 12.5 MG TAB PO SCH (10:11)
--- NOTE | 2016-06-12 11:36 | CARD ---
APPROVED REPORT EKG Measurement Heart [id number] <Conclusion> Normal sinus rhythm Left axis deviation Lateral infarct, age undetermined Inferior-posterior infarct, age undetermined Abnormal ECG
--- NOTE | 2016-06-12 11:37 | CARD ---
APPROVED REPORT EKG Measurement Heart [id number] <Conclusion> Sinus rhythm with premature supraventricular complexes ST elevation, consider inferior injury or acute infarct ACUTE MN / STEMI Consider right ventricular involvement in acute inferior infarct Abnormal ECG
[2016-06-12] MEDS ORDERED: Enoxaparin 40 mg Syringe SC SCH (15:15)
[2016-06-12] MEDS: Enoxaparin 40 mg Syringe SC SCH (17:40)
--- NOTE | 2016-06-12 17:48 | CARD ---
APPROVED REPORT EXAM: Two-dimensional and M-mode echocardiogram with Doppler and color Doppler. Other Information Quality : FairRhythm : NSR INDICATION Non STEMI ETOH AND MARAJ[place] ABUSE RISK FACTORS Hypertension Hyperlipidemia Smoking M-Mode DIMENSIONS RVDd1.63 (2.1-3.2cm)Left Atrium (MM)3.23 (2.5-4.0cm) IVSd0.76 (0.7-1.1cm)Aortic Root3.64 (2.2-3.7cm) LVDd5.41 (4.0-5.6cm)Aortic Cusp Exc.2.39 (1.5-2.0cm) PWd1.01 (0.7-1.1cm)FS (%) 41 % LVDs3.19 (2.0-3.8cm)LVEF (%)71 (>50%) Mitral Valve MV E Rmshxgfi75.6cm/sMV A Gkqaytov61.3cm/sE/A ratio0.9 TDI E/Lateral E'0.0E/Medial E'0.0 Tricuspid Valve TR Peak [id number]/sTR Peak Gr.[id number] LEFT VENTRICLE The left ventricle is normal size. There is normal left ventricular wall thickness. The left ventricular systolic function is normal. The left ventricular ejection fraction is within the normal range. There is normal LV segmental wall motion. The left ventricular diastolic function is normal. RIGHT VENTRICLE The right ventricle is normal size. The right ventricular systolic function is normal. ATRIA The left atrium size is normal. The right atrium size is normal. AORTIC VALVE The aortic valve is normal in structure. MITRAL VALVE The mitral valve is normal in structure. TRICUSPID VALVE The tricuspid valve is normal in structure. There is trace tricuspid regurgitation. PULMONIC VALVE The pulmonic valve is not well visualized. GREAT VESSELS The ascending aorta is normal in size. The IVC is normal in size and collapses >50% with inspiration. PERICARDIAL EFFUSION There is no pericardial effusion. <Conclusion> Normal biventricular function. No valvular abnormality. No pericardial effusion.
[2016-06-13 08:36] VITALS: BP 139/89; PULSE 71; TEMP 98; O2SAT 98
--- NOTE | 2016-06-13 08:56 | CP.PCM.PN ---
Subjective - Date & Time of Evaluation Date of Evaluation: 06/13/16 Time of Evaluation: 07:00 Objective - Vital Signs/Intake and Output Vital Signs (last 24 hours): Temp Pulse Resp BP Pulse Ox 98.0 F 71 20 139/89 98 06/13/16 07:37 06/13/16 07:37 06/13/16 07:37 06/13/16 07:37 06/13/16 07:37 Intake and Output: 06/13/16 06/13/16 06:59 18:59 Intake Total 690 Balance 690 - Medications Medications: Current Medications Aspirin (Aspirin Chewable) 81 mg PO DAILY [facility] Last Admin: 06/12/16 10:07 Dose: 81 mg Enoxaparin Sodium (Lovenox) 40 mg SC DAILY [facility] Last Admin: 06/12/16 17:40 Dose: 40 mg Famotidine (Pepcid) 20 mg PO DAILY [facility] Last Admin: 06/12/16 10:07 Dose: 20 mg Fluconazole (Diflucan) 100 mg PO DAILY [facility] Stop: 06/14/16 23:59 Last Admin: 06/12/16 17:42 Dose: 100 mg Losartan Potassium (Cozaar) 12.5 mg PO DAILY [facility] Last Admin: 06/12/16 10:11 Dose: 12.5 mg Metoprolol Tartrate (Lopressor) 25 mg PO Q12H [facility] Last Admin: 06/13/16 06:03 Dose: 25 mg Nicotine (Nicoderm Cq) 1 patch TD DAILY [facility] Last Admin: 06/12/16 17:44 Dose: 1 patch Rosuvastatin Calcium (Crestor) 40 mg PO HS [facility] Last Admin: 06/12/16 22:08 Dose: 40 mg Ticagrelor (Brilinta) 90 mg PO BID [facility] Last Admin: 06/12/16 22:08 Dose: 90 mg - Labs Labs: 06/12/16 06:40 06/12/16 06:40 PT 10.8 SECONDS (9.7-12.2) 06/10/16 11:15 INR 1.0 06/10/16 11:15 APTT 31 SECONDS (21-34) 06/10/16 11:15
[2016-06-13] MEDS: Losartan 12.5 MG TAB PO SCH (10:11)
[2016-06-13] MEDS: Enoxaparin 40 mg Syringe SC SCH (10:12)
--- NOTE | 2016-06-13 11:00 | CP.PCM.DIS ---
<Valente Santo - Last Filed: 06/13/16 16:56> Provider - Provider Date of Admission: 06/10/16 11:13 Attending physician: Sandrita Kelly DO Consults: Cardio: Dr. Mcdaniels Time Spent in preparation of Discharge (in minutes): 40 Diagnosis - Discharge Diagnosis (1) STEMI (ST elevation myocardial infarction) Status: Removed Comment: see hospital course Hospital Course - Lab Results Lab Results: Micro Results 06/10/16 Unknown Naris MRSA Culture (Admit) - Final MRSA NOT DETECTED Most Recent Lab Values WBC 12.6 K/uL (4.8-10.8) H 06/12/16 06:40 RBC 4.18 Mil/uL (4.40-5.90) L 06/12/16 06:40 Hgb 12.1 g/dL (12.0-18.0) 06/12/16 06:40 Hct 36.9 % (35.0-51.0) 06/12/16 06:40 MCV 88.3 fL (80.0-94.0) 06/12/16 06:40 MCH 29.0 pg (27.0-31.0) 06/12/16 06:40 MCHC 32.8 g/dL (33.0-37.0) L 06/12/16 06:40 RDW 15.5 % (11.5-14.5) H 06/12/16 06:40 Plt Count 281 K/uL (130-400) 06/12/16 06:40 MPV 7.6 fL (7.2-11.7) 06/12/16 06:40 Neut % (Auto) 73.4 % (50.0-75.0) 06/12/16 06:40 Lymph % (Auto) 13.3 % (20.0-40.0) L 06/12/16 06:40 Mellette % (Auto) 9.2 % (0.0-10.0) 06/12/16 06:40 Eos % (Auto) 3.3 % (0.0-4.0) 06/12/16 06:40 Baso % (Auto) 0.8 % (0.0-2.0) 06/12/16 06:40 Neut # 9.3 K/uL (1.8-7.0) H 06/12/16 06:40 Lymph # 1.7 K/uL (1.0-4.3) 06/12/16 06:40 Mellette # 1.2 K/uL (0.0-0.8) H 06/12/16 06:40 Eos # 0.4 K/uL (0.0-0.7) 06/12/16 06:40 Baso # 0.1 K/uL (0.0-0.2) 06/12/16 06:40 PT 10.8 SECONDS (9.7-12.2) 06/10/16 11:15 INR 1.0 06/10/16 11:15 APTT 31 SECONDS (21-34) 06/10/16 11:15 Sodium 140 mmol/L (132-148) 06/12/16 06:40 Potassium 3.6 mmol/L (3.6-5.2) 06/12/16 06:40 Chloride 102 mmol/L (98-107) 06/12/16 06:40 Carbon Dioxide 25 mmol/L (22-30) 06/12/16 06:40 Anion Gap 16 (10-20) 06/12/16 06:40 BUN 14 mg/dL (9-20) 06/12/16 06:40 Creatinine 0.7 MG/DL (0.8-1.5) L 06/12/16 06:40 Est GFR ( Amer) > 60 06/12/16 06:40 Est GFR (Non-Af Amer) > 60 06/12/16 06:40 Random Glucose 112 mg/dL (75-110) H 06/12/16 06:40 Hemoglobin A1c 6.4 % (4.2-6.5) 06/11/16 06:37 Calcium 8.1 mg/dl (8.6-10.4) L 06/12/16 06:40 Phosphorus 2.4 mg/dL (2.5-4.5) L 06/12/16 06:40 Magnesium 2.2 mg/dL (1.6-2.3) 06/12/16 06:40 Total Bilirubin 0.9 mg/dL (0.2-1.3) 06/12/16 06:40 AST 89 U/L (17-59) H D 06/12/16 06:40 ALT 24 U/L (21-72) 06/12/16 06:40 Alkaline Phosphatase 63 U/L (38-126) 06/12/16 06:40 Total Creatine Kinase 441 U/L (55-170) H 06/12/16 06:40 CK-MB (Mass) 8.08 ng/mL (0.0-3.38) H 06/12/16 06:40 Troponin I 0.0280 ng/mL (0.00-0.120) 06/10/16 11:15 Troponin I, Quant 17.1000 ng/mL (0.00-0.120) H* 06/12/16 06:40 Total Protein 6.6 g/dL (6.3-8.3) 06/12/16 06:40 Albumin 3.7 g/dL (3.5-5.0) 06/12/16 06:40 Globulin 2.8 gm/dL (2.2-3.9) 06/12/16 06:40 Albumin/Globulin Ratio 1.3 (1.0-2.1) 06/12/16 06:40 Triglycerides 155 mg/dL (0-149) H 06/10/16 11:15 Cholesterol 192 mg/dL (0-199) 06/10/16 11:15 LDL Cholesterol Direct 113 mg/dL (0-129) 06/10/16 11:15 HDL Cholesterol 35 mg/dL (30-70) 06/10/16 11:15 Procalcitonin < 0.05 NG/ML (0.19-0.49) L 06/12/16 09:34 Urine Color Yellow (YELLOW) 06/11/16 16:19 Urine Clarity Hazy (Clear) 06/11/16 16:19 Urine pH 7.0 (5.0-8.0) 06/11/16 16:19 Ur Specific [place] 1.021 (1.003-1.030) 06/11/16 16:19 Urine Protein Negative mg/dL (NEGATIVE) 06/11/16 16:19 Urine Glucose (UA) Normal mg/dL (Normal) 06/11/16 16:19 Urine Ketones Negative mg/dL (NEGATIVE) 06/11/16 16:19 Urine Blood Negative (NEGATIVE) 06/11/16 16:19 Urine Nitrate Negative (NEGATIVE) 06/11/16 16:19 Urine Bilirubin Negative (NEGATIVE) 06/11/16 16:19 Urine Urobilinogen Normal mg/dL (0.2-1.0) 06/11/16 16:19 Ur Leukocyte Esterase Neg Amilcar/uL (Negative) 06/11/16 16:19 Urine RBC (Auto) 3 /hpf (0-3) 06/11/16 16:19 Amorphous Sediment Many /ul (<OCC) H 06/11/16 16:19 Urine Yeast (Budding) Few /hpf (NEGATIVE) H 06/11/16 16:19 Blood Type A POSITIVE 06/10/16 11:16 Antibody Screen Negative 06/10/16 11:16 - Hospital Course Hospital Course: 61-year-old male, with PMHx HTN, Hypercholesterolemia, Anxiety/Depression, Gastritis - is brought to the emergency department by EMS with complaints of a burning chest pain, intermittent in nature, that is non-radiating and rated 9/ 10. Patient states he woke up this morning feeling well, and developed sudden sharp chest pain when he got to work at 10am. He has never had chest pain like this before, and there is associated dizziness and nausea. Patient reports a recent 2 month history of on/off chest pain associated with lethargy/weakness, for which he has been taking ASA without relief. His PMD recommended a stress test and carrotid dopplers, which he has scheduled for a later date. Patient denies f/c, change in vision, SOB, abdominal pain, vomiting, d/c, dysuria, recent travel, or any additional complaints. Patient was admitted for STEMI and code heart was called. Patient was given Aspirin, Zofran and IVF en route. EKG revealed ST elevation of inferior leads. He underwent catheterization with stent placement of RCA (100% occlusion), high grade occlusion of LAD and LCX also noted. Patient spent two days in ICU due to telemetry overflow. He was continued on clinical regimen. Patient did well and improved. ECHO was done and showed normal echo with LVEF of 71%. Hemoglobin A1C of the patient was determined to be 6.4. Patient was instructed to make lifestyle modifications. He was instructed to continue medication regimen that he was on in the hospital and to follow up with Dr. Mcdaniels within 1 week of discharge. Plan is to optimially medicate him and elective referral for CABG for remaining CAD based on clinical course. Ideally would like to wait at least 3 months post stent implantation unless clinically warranted prior. This is a summary of the hospital course. Please refer to EMR for more details. Discharge Exam - Head Exam Head Exam: ATRAUMATIC, NORMOCEPHALIC - Eye Exam Eye Exam: EOMI, Normal appearance Pupil Exam: PERRL - ENT Exam ENT Exam: Mucous Membranes Moist - Neck Exam Neck exam: Normal Inspection - Respiratory Exam Respiratory Exam: Clear to PA & Lateral, NORMAL BREATHING PATTERN - Cardiovascular Exam Cardiovascular Exam: REGULAR RHYTHM, +S1, +S2 - GI/Abdominal Exam GI & Abdominal Exam: Normal Bowel Sounds, Soft. absent: Tenderness - Extremities Exam Extremities exam: normal capillary refill, pedal pulses present - Back Exam Back exam: absent: CVA tenderness (R) - Neurological Exam Neurological exam: Alert, CN II-XII Intact, Normal Gait, Oriented x3 - Psychiatric Exam Psychiatric exam: Normal Affect, Normal Mood - Skin Skin Exam: Dry, Intact, Normal Color, Warm Discharge Plan - Discharge Medications Prescriptions: Aspirin [Aspirin Chewable] 81 mg PO DAILY #30 chew Ticagrelor [Brilinta] 90 mg PO BID #60 tab Losartan [Cozaar] 12.5 mg PO DAILY #30 tab Rosuvastatin Calcium [Crestor] 40 mg PO HS #30 tab Fluconazole [Diflucan] 100 mg PO DAILY #1 tab Metoprolol Tartrate [Lopressor] 25 mg PO Q12H #60 tab Nicotine 21 mg/24 hr [Nicoderm Cq] 1 patch TD DAILY #30 patch Omeprazole 40 mg PO DAILY #30 capsule.dr - Follow Up Plan Condition: STABLE Disposition: HOME/ ROUTINE Instructions: Metoprolol (By mouth), Aspirin (By mouth), Omeprazole (By mouth) , Fluconazole (By mouth), Nicotine (Absorbed through the skin), Losartan (By mouth), Rosuvastatin (By mouth), Ticagrelor (By mouth), Myocardial Infarction ( DC), How to Stop Smoking (DC), Heart Healthy Diet (DC), Cigarette Smoking and Your Health (GEN) Additional Instructions: Patient medically stable for discharge to home by Dr. Kelly. Patient to take new medications Brillanta 90 mg by mouth twice per day, ASA 81 mg by mouth daily , Crestor 40 mg by mouth at bedtime, Lisinopril 12.5 mg by mouth daily, Nicoderm patch daily, Diflucan 100 mg by mouth for one day and Metoprolol 25 mg by mouth twice per day. Patient is to hold off from taking other home medications until follow up. Patient is to start taking medications stated above immediately and not to miss a dose. Patient is to follow up with PMD (Dr. Montaño) and Cardiology (Dr. Mcdaniels) within 1 week. Patient is to eat low carb and low fat diet. He is to refrain from smoking. Patient is to stay home from work until follow up with Dr. Mcdaniels. Please return to ER if symptoms persist or condition worsens. All instructions stated above were discussed in detail with patient. He verbalized understanding and agreement. Referrals: Jonel Mcdaniels MD [Staff Provider] - Jeremias Montaño MD [Non-Staff] - <Sandrita Kelly V - Last Filed: 06/14/16 11:51> Provider - Provider Date of Admission: 06/10/16 11:13 Attending physician: Sandrita Kelly, Hospital Course - Lab Results Lab Results: Micro Results 06/12/16 10:13 Naris MRSA Culture - Final MRSA NOT DETECTED 06/10/16 Unknown Naris MRSA Culture (Admit) - Final MRSA NOT DETECTED Most Recent Lab Values WBC 9.4 K/uL (4.8-10.8) 06/13/16 11:10 RBC 4.32 Mil/uL (4.40-5.90) L 06/13/16 11:10 Hgb 12.7 g/dL (12.0-18.0) 06/13/16 11:10 Hct 38.0 % (35.0-51.0) 06/13/16 11:10 MCV 88.0 fL (80.0-94.0) 06/13/16 11:10 MCH 29.4 pg (27.0-31.0) 06/13/16 11:10 MCHC 33.4 g/dL (33.0-37.0) 06/13/16 11:10 RDW 15.7 % (11.5-14.5) H 06/13/16 11:10 Plt Count 291 K/uL (130-400) 06/13/16 11:10 MPV 7.9 fL (7.2-11.7) 06/13/16 11:10 Neut % (Auto) 71.3 % (50.0-75.0) 06/13/16 11:10 Lymph % (Auto) 16.0 % (20.0-40.0) L 06/13/16 11:10 Mellette % (Auto) 9.4 % (0.0-10.0) 06/13/16 11:10 Eos % (Auto) 2.9 % (0.0-4.0) 06/13/16 11:10 Baso % (Auto) 0.4 % (0.0-2.0) 06/13/16 11:10 Neut # 6.7 K/uL (1.8-7.0) 06/13/16 11:10 Lymph # 1.5 K/uL (1.0-4.3) 06/13/16 11:10 Mellette # 0.9 K/uL (0.0-0.8) H 06/13/16 11:10 Eos # 0.3 K/uL (0.0-0.7) 06/13/16 11:10 Baso # 0.0 K/uL (0.0-0.2) 06/13/16 11:10 PT 10.8 SECONDS (9.7-12.2) 06/10/16 11:15 INR 1.0 06/10/16 11:15 APTT 31 SECONDS (21-34) 06/10/16 11:15 Sodium 141 mmol/L (132-148) 06/13/16 11:10 Potassium 4.1 mmol/L (3.6-5.2) 06/13/16 11:10 Chloride 104 mmol/L (98-107) 06/13/16 11:10 Carbon Dioxide 24 mmol/L (22-30) 06/13/16 11:10 Anion Gap 17 (10-20) 06/13/16 11:10 BUN 13 mg/dL (9-20) 06/13/16 11:10 Creatinine 0.8 MG/DL (0.8-1.5) 06/13/16 11:10 Est GFR ( Amer) > 60 06/13/16 11:10 Est GFR (Non-Af Amer) > 60 06/13/16 11:10 Random Glucose 101 mg/dL (75-110) 06/13/16 11:10 Hemoglobin A1c 6.4 % (4.2-6.5) 06/11/16 06:37 Calcium 9.1 mg/dl (8.6-10.4) 06/13/16 11:10 Phosphorus 2.4 mg/dL (2.5-4.5) L 06/12/16 06:40 Magnesium 2.2 mg/dL (1.6-2.3) 06/12/16 06:40 Total Bilirubin 0.5 mg/dL (0.2-1.3) 06/13/16 11:10 AST 53 U/L (17-59) 06/13/16 11:10 ALT 21 U/L (21-72) 06/13/16 11:10 Alkaline Phosphatase 72 U/L (38-126) 06/13/16 11:10 Total Creatine Kinase 441 U/L (55-170) H 06/12/16 06:40 CK-MB (Mass) 8.08 ng/mL (0.0-3.38) H 06/12/16 06:40 Troponin I 0.0280 ng/mL (0.00-0.120) 06/10/16 11:15 Troponin I, Quant 17.1000 ng/mL (0.00-0.120) H* 06/12/16 06:40 Total Protein 7.2 g/dL (6.3-8.3) 06/13/16 11:10 Albumin 4.0 g/dL (3.5-5.0) 06/13/16 11:10 Globulin 3.1 gm/dL (2.2-3.9) 06/13/16 11:10 Albumin/Globulin Ratio 1.3 (1.0-2.1) 06/13/16 11:10 Triglycerides 155 mg/dL (0-149) H 06/10/16 11:15 Cholesterol 192 mg/dL (0-199) 06/10/16 11:15 LDL Cholesterol Direct 113 mg/dL (0-129) 06/10/16 11:15 HDL Cholesterol 35 mg/dL (30-70) 06/10/16 11:15 Procalcitonin < 0.05 NG/ML (0.19-0.49) L 06/12/16 09:34 Urine Color Yellow (YELLOW) 06/11/16 16:19 Urine Clarity Hazy (Clear) 06/11/16 16:19 Urine pH 7.0 (5.0-8.0) 06/11/16 16:19 Ur Specific [place] 1.021 (1.003-1.030) 06/11/16 16:19 Urine Protein Negative mg/dL (NEGATIVE) 06/11/16 16:19 Urine Glucose (UA) Normal mg/dL (Normal) 06/11/16 16:19 Urine Ketones Negative mg/dL (NEGATIVE) 06/11/16 16:19 Urine Blood Negative (NEGATIVE) 06/11/16 16:19 Urine Nitrate Negative (NEGATIVE) 06/11/16 16:19 Urine Bilirubin Negative (NEGATIVE) 06/11/16 16:19 Urine Urobilinogen Normal mg/dL (0.2-1.0) 06/11/16 16:19 Ur Leukocyte Esterase Neg Amilcar/uL (Negative) 06/11/16 16:19 Urine RBC (Auto) 3 /hpf (0-3) 06/11/16 16:19 Amorphous Sediment Many /ul (<OCC) H 06/11/16 16:19 Urine Yeast (Budding) Few /hpf (NEGATIVE) H 06/11/16 16:19 Blood Type A POSITIVE 06/10/16 11:16 Antibody Screen Negative 06/10/16 11:16 Attending/Attestation - Attestation I have personally seen and examined this patient.: Yes I have fully participated in the care of the patient.: Yes I have reviewed all pertinent clinical information, including history, physical exam and plan: Yes Notes (Text): This is late computer entry for 06/13/16. Patient seen, examined and case discussed with day-time resident. Patient denies acute complaints. Discussed with patient regarding his a1c and need for diet and exercise modifications. Discussed with cardiology, patient is stable for discharge today, recommended followup in one week and to not return to work at this time to setup for CABG at a later date. I personally stressed the importance of compliance of his medications and need for diet modifications to the patient. Patient and I had again had lengthy discussion regarding tobacco use and cessation in light of his coronary artery disease and risks associated with smoking including cancer and which the patient affirm he can and did not want extra cessation aides. Echocardiogram: normal biventricular function, no valvular abnormality, no pericardial effusion Patient stable for discharge. Discussed discharge order and discharge instructions with day-time resident. Patient verbalized understanding and agrees with plan/ New Prescriptions to be discharged on (one month supply; no refills) * Aspirin 81mg PO daily * Cozaar 12.5mg PO daily * Lopressor 25mg PO bid * Crestor 40mg POqHS * Brilinta 90mg PO Bid * Diflucan 100mg PO X1 pill only. This is a summary of patient's hospitalization. please refer to EMR for further details. Assessment/Plan 1) STEMI; Coronary artery disease POD 3 s/p cath (06/10) * Aspirin 81mg PO daily * Cozaar 12.5mg PO daily * Lopressor 25mg PO bid * Crestor 40mg POqHS * Brilinta 90mg PO Bid * Per cath report 06/10/16: 100% occlusion of tortous and very angulated RCA; severe coronary artery disease in LAD and left circumflex artery; normal left ventricular systolic function; placement of 2 drug-eluting stents in mid right RCA and distal RCA/PDA * Lovenox 40mg subq daily * Cardiology (Dr. Vásquez) on board-->help appreciated * Troponin downtrending * hemglobin: 6.4; will need repeat a1c in one year given patient has high chance in becoming diabetic; diet and exercise modifications * Cholestrol: 192, LDL:113 HDL:35 T * per cardiology: Possible d/c on day 4 post WA with plans to optimially medicate him and elective referral for CABG for remaining CAD based on clinical course. Ideally would like to wait at least 3 months post stent implantation unless clinically warranted prior * Chest xray (06/10/16): biapical pleural thickening with upper lobe granulomatous changes. mild venous congestion. multiple wries and rounded opacity projects at the left bas likely external. 2) Hyperlipidemia * Crestor 40 mg PO HS JENY * Cholestrol: 192, LDL:113 HDL:35 T 3) HTN * Losartan 12.5mg PO qdaily * Lopressor 25mg PO bid 4) Leukocytosis * normalized * likely post-inflammatory given STEMI * procalcitonin <0.05 * afebrile * MRSA: not detected 5) Anxiety/Depression * home med: Depakote DR 250mg PO BID * Trazodone 50mg PO HS PRN, insomnia 6) Tobacco use * counselled at bedside about tobacco cessation * Started on Nicotine patch to curb cessation 7) Abnormal UA * Difllucan 100mg PO daily for 3 days total 8) Impaired glucose tolerance * hemglobin: 6.4; will need repeat a1c in one year given patient has high chance in becoming diabetic; diet and exercise modifications 9) Prophylaxis * Pepcid 20 mg PO daily for GI ppx (hx of gastritis) * Lovenox 40mg subq daily for DVT ppx * SCDS b/
[2016-06-13 11:23] LABS: BASO % 0.4 % (0.0-2.0); EOS # 0.3 K/uL (0.0-0.7); EOS % 2.9 % (0.0-4.0); LYMPH # 1.5 K/uL (1.0-4.3); MEAN CORPUSCULAR HEMOGLOBIN 29.4 pg (27.0-31.0); MEAN CORPUSCULAR HGB CONC 33.4 g/dL (33.0-37.0); MEAN PLATELET VOLUME 7.9 fL (7.2-11.7); MONO # 0.9 K/uL (0.0-0.8); MONO % 9.4 % (0.0-10.0); RED CELL DISTRIBUTION WIDTH 15.7 % (11.5-14.5); WHITE BLOOD COUNT 9.4 K/uL (4.8-10.8)
[2016-06-13 11:39] LABS: CHLORIDE 104 mmol/L (98-107)
[2016-06-13 11:40] LABS: POTASSIUM 4.1 mmol/L (3.6-5.2); SODIUM 141 mmol/L (132-148)
[2016-06-13 11:42] LABS: ALB/GLOB RATIO 1.3 (1.0-2.1); ALKALINE PHOSPHATASE 72 U/L (38-126); ALT/SGPT 21 U/L (21-72); AST/SGOT 53 U/L (17-59); BILIRUBIN,TOTAL 0.5 mg/dL (0.2-1.3); BLOOD UREA NITROGEN 13 mg/dL (9-20); CARBON DIOXIDE 24 mmol/L (22-30); GFR AFRICAN-AMERICAN > 60; TOTAL PROTEIN 7.2 g/dL (6.3-8.3)
[2016-06-13 11:43] LABS: CALCIUM 9.1 mg/dl (8.6-10.4); GLUCOSE,RANDOM 101 mg/dL (75-110)
--- NOTE | 2016-06-13 12:16 | CP.PCM.PN ---
Subjective - Date & Time of Evaluation Date of Evaluation: 06/13/16 Time of Evaluation: 12:15 - Subjective Subjective: Feels 'Great' No CP no SOB Ambulating well labs: revieed No arrythmia Objective - Vital Signs/Intake and Output Vital Signs (last 24 hours): Temp Pulse Resp BP Pulse Ox 98.0 F 71 20 139/89 98 06/13/16 07:37 06/13/16 07:37 06/13/16 07:37 06/13/16 07:37 06/13/16 07:37 Intake and Output: 06/13/16 06/13/16 06:59 18:59 Intake Total 690 Balance 690 - Medications Medications: Current Medications Aspirin (Aspirin Chewable) 81 mg PO DAILY [facility] Last Admin: 06/13/16 10:15 Dose: 81 mg Enoxaparin Sodium (Lovenox) 40 mg SC DAILY [facility] Last Admin: 06/13/16 10:12 Dose: 40 mg Famotidine (Pepcid) 20 mg PO DAILY [facility] Last Admin: 06/13/16 10:14 Dose: 20 mg Fluconazole (Diflucan) 100 mg PO DAILY [facility] Stop: 06/14/16 23:59 Last Admin: 06/13/16 10:10 Dose: 100 mg Losartan Potassium (Cozaar) 12.5 mg PO DAILY [facility] Last Admin: 06/13/16 10:11 Dose: 12.5 mg Metoprolol Tartrate (Lopressor) 25 mg PO Q12H [facility] Last Admin: 06/13/16 06:03 Dose: 25 mg Nicotine (Nicoderm Cq) 1 patch TD DAILY [facility] Last Admin: 06/13/16 10:15 Dose: 1 patch Rosuvastatin Calcium (Crestor) 40 mg PO HS [facility] Last Admin: 06/12/16 22:08 Dose: 40 mg Ticagrelor (Brilinta) 90 mg PO BID [facility] Last Admin: 06/13/16 10:11 Dose: 90 mg - Labs Labs: 06/13/16 11:10 06/13/16 11:10 PT 10.8 SECONDS (9.7-12.2) 06/10/16 11:15 INR 1.0 06/10/16 11:15 APTT 31 SECONDS (21-34) 06/10/16 11:15 - Head Exam Head Exam: ATRAUMATIC, NORMAL INSPECTION, NORMOCEPHALIC - Eye Exam Eye Exam: EOMI, Normal appearance, PERRL - ENT Exam ENT Exam: Mucous Membranes Moist, Normal Exam - Neck Exam Neck Exam: Full ROM, Normal Inspection - Respiratory Exam Respiratory Exam: Clear to Ausculation Bilateral, NORMAL BREATHING PATTERN - Cardiovascular Exam Cardiovascular Exam: REGULAR RHYTHM, +S1, +S2. absent: +S4, Murmur - GI/Abdominal Exam GI & Abdominal Exam: Soft, Normal Bowel Sounds. absent: Tenderness - Extremities Exam Extremities Exam: Normal Inspection. absent: Calf Tenderness - Back Exam Back Exam: absent: CVA tenderness (L), CVA tenderness (R) - Neurological Exam Neurological Exam: Alert, Awake, Normal Gait, Oriented x3 Neuro motor strength exam: Left Upper Extremity: 5, Right Upper Extremity: 5, Left Lower Extremity: 5, Right Lower Extremity: 5 - Psychiatric Exam Psychiatric exam: Normal Affect - Skin Skin Exam: Normal Color, Warm Assessment and Plan - Assessment and Plan (Free Text) Assessment: 61 y/o HTN, LIPIDS, SMOKER and acute inf-post CT 06/10/16: Rx with urgent cath and ANDREY stentsx2 to mid RCA with resolution of CP and ST elevation * Residual surgical obstructive disease remains in distal LM, prox LAD and prox LCX * Troponin trending down 0.02 > 107 > 55 > 17 * Creat & K+ WNL, AST/ALT WNL * H/H wnl * R. groin without any complications * TELE: NSR * ASX: no CP, SOB or FEVER * LDL 114, TRG 155 plan: ASA 81, Brillinta 90 BID, Crestor 40; Losartan 25, inc Metoprolol to 25 BID if BP improves to >100 mmHg Agree with pepcid given hx of gastritis ASX: No PAIN feels 'great' ambulating without discomfort Nicotine patch Ok for d/c today: Adsvised patient and need to be compliant with DAPT, and other meds. Given residual CAD and surgical anatomy I have suggested no work for next few weeks and will see me as outpatient eval in 2 weeks; Surgery should be done sooner then later estimated before end of the June.
== END 2016-06-13 17:30 | disposition home or self-care (01) | DRG 853 ==
LOC: C.ER 11:04 → C.9I 11:13 → C.6T 06-12 11:07
PROVIDERS: ADMIT Hospitalist; ATTEND Hospitalist
PROC: 027035Z Dilation of Coronary Artery, One Artery with Two Drug-eluting Intraluminal Devices, Percutaneous Approach (ICD-10-PCS; principal; 2016-06-10)
PROC: 4A023N7 Measurement of Cardiac Sampling and Pressure, Left Heart, Percutaneous Approach (ICD-10-PCS; 2016-06-10)
PROC: B201YZZ Plain Radiography of Multiple Coronary Arteries using Other Contrast (ICD-10-PCS; 2016-06-10)
PROC: B205YZZ Plain Radiography of Left Heart using Other Contrast (ICD-10-PCS; 2016-06-10)
DX: I21.19 ST elevation (STEMI) myocardial infarction involving other coronary artery of inferior wall (principal); I10 Essential (primary) hypertension; I25.10 Atherosclerotic heart disease of native coronary artery without angina pectoris; F41.9 Anxiety disorder, unspecified; F32.9 Major depressive disorder, single episode, unspecified; E78.00 Pure hypercholesterolemia, unspecified; K21.9 Gastro-esophageal reflux disease without esophagitis; F12.90 Cannabis use, unspecified, uncomplicated; F17.210 Nicotine dependence, cigarettes, uncomplicated; K29.70 Gastritis, unspecified, without bleeding; E78.5 Hyperlipidemia, unspecified; G47.00 Insomnia, unspecified

== ENCOUNTER 2016-07-01 04:22 | Emergency (ER) | payer OTHER ==
[2016-07-01 04:23] VITALS: BMI 24.3
[2016-07-01] MEDS ORDERED: Sodium Chloride 0.9% 1,000 ML IV ONE (04:40)
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
[2016-07-01 05:04] LABS: BASO % 0.3 % (0.0-2.0); EOS # 0.1 K/uL (0.0-0.7); EOS % 0.5 % (0.0-4.0); HEMATOCRIT 41.1 % (35.0-51.0); LYMPH # 1.4 K/uL (1.0-4.3); LYMPH % 10.9 % (20.0-40.0); MEAN CELL VOLUME 87.6 fL (80.0-94.0); MEAN CORPUSCULAR HEMOGLOBIN 29.5 pg (27.0-31.0); MEAN CORPUSCULAR HGB CONC 33.6 g/dL (33.0-37.0); MEAN PLATELET VOLUME 7.2 fL (7.2-11.7); MONO # 0.6 K/uL (0.0-0.8); MONO % 4.5 % (0.0-10.0); RED CELL DISTRIBUTION WIDTH 15.9 % (11.5-14.5); WHITE BLOOD COUNT 13.3 K/uL (4.8-10.8)
[2016-07-01 05:13] LABS: CHLORIDE 107 mmol/L (98-107)
[2016-07-01 05:14] LABS: POTASSIUM 3.8 mmol/L (3.6-5.2); SODIUM 148 mmol/L (132-148)
[2016-07-01 05:16] LABS: ALB/GLOB RATIO 1.4 (1.0-2.1); ALKALINE PHOSPHATASE 97 U/L (38-126); AST/SGOT 54 U/L (17-59); BILIRUBIN,TOTAL 0.6 mg/dL (0.2-1.3); BLOOD UREA NITROGEN 12 mg/dL (9-20); CARBON DIOXIDE 23 mmol/L (22-30); GFR AFRICAN-AMERICAN > 60; TOTAL PROTEIN 7.8 g/dL (6.3-8.3)
[2016-07-01 05:17] LABS: ALCOHOL SERUM 149 mg/dl (0-10); ALT/SGPT 22 U/L (21-72); CALCIUM 8.8 mg/dl (8.6-10.4); GLUCOSE,RANDOM 116 mg/dL (75-110)
--- NOTE | 2016-07-01 06:01 | CT ---
EXAM: CT Head Without Intravenous Contrast CLINICAL HISTORY: 61 years old, male; Pain; Headache; Additional info: R/O bleed TECHNIQUE: Axial computed tomography images of the head/brain without intravenous contrast. This CT exam was performed using one or more of the following dose reduction techniques: automated exposure control, adjustment of the mA and/or kV according to patient size, and/or use of iterative reconstruction technique. COMPARISON: No relevant prior studies available. FINDINGS: Limitations: Motion artifact - mild to moderate. Brain: Mild atrophy. No definite intracranial hemorrhage. No definite mass. No definite edema. Ventricles: No hydrocephalus. Bones/joints: No calvarial fracture. Soft tissues: Frontal soft tissue swelling/irregularity. Vasculature: Atherosclerotic disease of intracranial arteries. Mastoid air cells: No mastoid effusion. IMPRESSION: 1. Limited examination. Consider repeat examination when clinically able. 2. No definite intracranial hemorrhage. 3. See facial bone CT report for additional details. 4. Incidental/non-acute findings are described above.
--- NOTE | 2016-07-01 06:04 | CT ---
EXAM: CT Cervical Spine Without Intravenous Contrast CLINICAL HISTORY: 61 years old, male; Pain; Neck pain; Additional info: Fall TECHNIQUE: Axial computed tomography images of the cervical spine without intravenous contrast. This CT exam was performed using one or more of the following dose reduction techniques: automated exposure control, adjustment of the mA and/or kV according to patient size, and/or use of iterative reconstruction technique. Coronal and sagittal reformatted images were created and reviewed. COMPARISON: No relevant prior studies available. FINDINGS: Limitations: Motion artifact - mild. Vertebrae: No acute fracture. Facet osteoarthrosis within cervical spine. Discs/spinal canal/neural foramina: Moderate degenerative disc disease within mid and lower cervical spine. Mild disc herniations within mid to lower cervical spine, suboptimally evaluated. No significant central canal stenosis. Neuroforaminal narrowing within mid and lower cervical spine. Soft tissues: Unremarkable. Vasculature: Mild atherosclerotic disease. Lung apices: Minimal bullous changes and probable scarring. IMPRESSION: 1. No fracture. 2. See facial bone CT report for additional details. 3. Incidental/non-acute findings are described above.
--- NOTE | 2016-07-01 06:08 | CT ---
EXAM: CT Maxillofacial Without Intravenous Contrast CLINICAL HISTORY: 61 years old, male; Pain; Eye pain and face pain; Bilateral; Additional info: Fall TECHNIQUE: Axial computed tomography images of the face without intravenous contrast. This CT exam was performed using one or more of the following dose reduction techniques: automated exposure control, adjustment of the mA and/or kV according to patient size, and/or use of iterative reconstruction technique. Coronal and sagittal reformatted images were created and reviewed. COMPARISON: No relevant prior studies available. FINDINGS: Bones/joints: Comminuted fracture RIGHT nasal bone. Comminuted fracture LEFT nasal bone. Mild deformity floor of LEFT orbit, likely chronic. Soft tissues: Periorbital and nasal soft tissue swelling. Small foreign body along nasal soft tissues. Orbits: Unremarkable as visualized. Sinuses: Mild focal mucosal thickening of LEFT maxillary sinus. Scattered minimal mucosal thickening of remaining sinuses. No air-fluid levels. IMPRESSION: 1. Nasal fractures. 2. Incidental/non-acute findings are described above.
[2016-07-01] MEDS ORDERED: Lidocaine 2% w Epi 1:100,000 Inj IJ ONE (06:17)
[2016-07-01] MEDS ORDERED: cefTRIAXone IV 1 gm in Dextros 50 ML IVPB ONE ×2 (06:37→06:44)
[2016-07-01 08:34] VITALS: BP 138/76; PULSE 87; RESP 18; TEMP 98.5; O2SAT 98
== END 2016-07-01 08:34 | disposition home or self-care (01) ==
LOC: C.ER 04:22
DX: S02.2XXB Fracture of nasal bones, initial encounter for open fracture (principal); S01.81XA Laceration without foreign body of other part of head, initial encounter; W18.39XA Other fall on same level, initial encounter; Y92.9 Unspecified place or not applicable; F10.120 Alcohol abuse with intoxication, uncomplicated; Y90.6 Blood alcohol level of 120-199 mg/100 ml
CPT/HCPCS: 12013; 70450; 70480; 72125; 80053; 80320; 83690; 85025; 85610; 85730; 96361; 96374; 99285; J0696; J7040

== ENCOUNTER 2016-07-06 15:55 | Emergency (ER) | payer OTHER ==
[2016-07-06 15:56] VITALS: BMI 24.3
[2016-07-06 16:03] VITALS: BP 120/91; PULSE 96; TEMP 98.1; O2SAT 100
--- NOTE | 2016-07-06 16:17 | C.PDOC ---
History Of Present Illness 61 yr old male presents to the ER for removal of sutures and chago from the forehead and nasal bridge , placed 5 days ago after sustaining a fall. Patient denies drainage from the sites, fever, vision changes, nausea, vomiting, headache, weakness or numbness. Time Seen by Provider: 07/06/16 16:01 Chief Complaint (Nursing): Wound Check History Per: Patient History/Exam Limitations: no limitations Onset/Duration Of Symptoms: Days Ago (5) Current Symptoms Are (Timing): Gone Past Medical History Reviewed: Historical Data, Nursing Documentation, Vital Signs Vital Signs: Last Vital Signs Temp 98.1 F 07/06/16 15:59 Pulse 96 H 07/06/16 15:59 Resp 20 07/06/16 16:23 BP 120/91 H 07/06/16 15:59 Pulse Ox 100 07/06/16 16:27 - Medical History PMH: Anxiety, Depression, Gastritis, GERD, HTN, Hypercholesterolemia - [facility] Procedures DILATION OF 1 COR ART WITH 2 DRUG-ELUT, PERC APPROACH (06/10/16) GROUP PSYCHOTHERAPY (03/23/16) INDIVIDUAL PSYCHOTHERAPY, SUPPORTIVE (03/23/16) MEASURE OF CARDIAC SAMPL & PRESSURE, L HEART, PERC APPROACH (06/10/16) PLAIN RADIOGRAPHY OF LEFT HEART USING OTHER CONTRAST (06/10/16) PLAIN RADIOGRAPHY OF MULT COR ART USING OTH CONTRAST (06/10/16) Family History: States: No Known Family Hx - Social History Hx Tobacco Use: Yes Hx Alcohol Use: Yes Hx Substance Use: No - Immunization History Hx Tetanus Toxoid Vaccination: No Hx Influenza Vaccination: No Hx Pneumococcal Vaccination: No Review Of Systems Except As Marked, All Systems Reviewed And Found Negative. Constitutional: Negative for: Fever Eyes: Negative for: Vision Change Gastrointestinal: Negative for: Nausea, Vomiting Skin: Positive for: Other (Chago and sutures removal from the forehead and nasal bridge) Neurological: Negative for: Weakness, Numbness, Headache Physical Exam - Physical Exam Appears: Well, Non-toxic, No Acute Distress Skin: Warm, Dry, No Rash Head: Other (healing lacerations on the forehead and nasal bridge with scabs still in place.) Eye(s): bilateral: PERRL, EOMI Nose: Normal, No Deformity, No Tenderness Oral Mucosa: Moist Neck: Normal, Normal ROM, Supple Chest: Symmetrical, No Tenderness Cardiovascular: Rhythm Regular, No Murmur Extremity: Normal ROM, No Swelling Neurological/Psych: Oriented x3, Normal Speech, Normal Motor ED Course And Treatment O2 Sat by Pulse Oximetry: 100 Medical Decision Making Medical Decision Making: NOTE: * 6 chago were removed from the forehead. No signs of infections. No drainage. * Sutures were removed from the nasal bridge. No signs of infections. No drainage. Disposition - Disposition Referrals: [facility] [Outside] Disposition: HOME/ ROUTINE Disposition Time: 16:16 Condition: GOOD Additional Instructions: Please follow up with your doctor. Keep wound clean with soap and water. Return to the ER for any worsening symptoms, signs of infection, or for any other concerns. Forms: General Discharge Instructions - Clinical Impression Clinical Impression: Visit for suture removal, Encounter for staple removal - Scribe Statement The provider has reviewed the documentation as recorded by the Scribe Martha Sanchez Provider Attestation: All medical record entries made by the Scribe were at my direction and personally dictated by me. I have reviewed the chart and agree that the record accurately reflects my personal performance of the history, physical exam, medical decision making, and the department course for this patient. I have also personally directed, reviewed, and agree with the discharge instructions and disposition.
[2016-07-06 16:24] VITALS: RESP 20
== END 2016-07-06 16:23 | disposition home or self-care (01) ==
LOC: C.ER 15:55
DX: Z48.02 Encounter for removal of sutures (principal)

== ENCOUNTER 2016-07-31 13:32 | Emergency (ER) | payer OTHER ==
[2016-07-31 13:32] VITALS: BMI 24.3
[2016-07-31 13:44] VITALS: BP 161/95; PULSE 92; RESP 17; TEMP 97.6; O2SAT 98
--- NOTE | 2016-07-31 13:58 | C.PDOC ---
History Of Present Illness 61-YEAR-OLD MALE, PRESENTS TO THE EMERGENCY DEPARTMENT STATING "IM JUST FRUSTRATED AND NEEDED TO GET OUT OF THE HOUSE". PATIENT STATES HE HAD AN ARGUMENT WITH [employer], EMS CALLED FIRST TIME BUT DECIDED TO STAY HOME. 911 CALLED AGAIN, PS "I JUST WENT WITH EMS BECAUSE I NEEDED TO GET OUT OF THE HOUSE ". DENIES RECENT ETOH. NO SI/SA. DENIES ANY ASSOCIATED SYMPTOMS. EXAM NEG MDM PS WILL CALL FRIEND TO PICK HIM UP AND STAY WITH HIM. NEG BREATHYLYZER. Time Seen by Provider: 07/31/16 13:39 Chief Complaint (Nursing): Medical Clearance History Per: Patient History/Exam Limitations: no limitations Past Medical History Reviewed: Historical Data, Nursing Documentation, Vital Signs Vital Signs: Last Vital Signs Temp 97.6 F 07/31/16 13:41 Pulse 92 H 07/31/16 13:41 Resp 17 07/31/16 13:41 BP 161/95 H 07/31/16 13:41 Pulse Ox 98 07/31/16 13:58 - Medical History PMH: Anxiety, Depression, Gastritis, GERD, HTN, Hypercholesterolemia Surgical History: Denies: Pacemaker - [facility] Procedures DILATION OF 1 COR ART WITH 2 DRUG-ELUT, PERC APPROACH (06/10/16) GROUP PSYCHOTHERAPY (03/23/16) INDIVIDUAL PSYCHOTHERAPY, SUPPORTIVE (03/23/16) MEASURE OF CARDIAC SAMPL & PRESSURE, L HEART, PERC APPROACH (06/10/16) PLAIN RADIOGRAPHY OF LEFT HEART USING OTHER CONTRAST (06/10/16) PLAIN RADIOGRAPHY OF MULT COR ART USING OTH CONTRAST (06/10/16) Family History: States: No Known Family Hx - Social History Hx Tobacco Use: Yes Hx Alcohol Use: Yes Hx Substance Use: No - Immunization History Hx Tetanus Toxoid Vaccination: No Hx Influenza Vaccination: No Hx Pneumococcal Vaccination: No Review Of Systems Except As Marked, All Systems Reviewed And Found Negative. Cardiovascular: Negative for: Chest Pain Respiratory: Negative for: Shortness of Breath Psych: Negative for: Anxiety, Depression, Suicidal ideation ((-)HI) Physical Exam - Physical Exam Appears: Non-toxic, No Acute Distress Eye(s): bilateral: Normal Inspection Nose: Normal Lips: Normal Appearing Neck: Normal ROM Respiratory: No Accessory Muscle Use Extremity: Normal ROM Neurological/Psych: Oriented x3 ED Course And Treatment O2 Sat by Pulse Oximetry: 98 Reevaluation Time: 13:55 Reassessment Condition: Unchanged (BREATHYLZER = 0) Medical Decision Making Medical Decision Making: PS WILL CALL FRIEND TO PICK HIM UP AND STAY WITH HIM. NEG BREATHYLYZER. Disposition Counseled Patient/Family Regarding: Diagnosis, Need For Followup - Disposition Disposition: HOME/ ROUTINE Disposition Time: 13:54 Condition: GOOD Instructions: Anxiety (ED) - Clinical Impression Clinical Impression: Medical assessment, Adjustment disorder - Scribe Statement The provider has reviewed the documentation as recorded by the Chet [place] All medical record entries made by the Chet were at my direction and personally dictated by me. I have reviewed the chart and agree that the record accurately reflects my personal performance of the history, physical exam, medical decision making, and the department course for this patient. I have also personally directed, reviewed, and agree with the discharge instructions and disposition.
== END 2016-07-31 14:05 | disposition home or self-care (01) ==
LOC: C.ER 13:32
DX: F43.20 Adjustment disorder, unspecified (principal)

== ENCOUNTER 2016-08-28 07:56 | Emergency (ER) | payer OTHER ==
[2016-08-28 07:57] VITALS: BMI 24.3
[2016-08-28 08:10] VITALS: RESP 18
[2016-08-28 09:15] LABS: BASO # 0.1 K/uL (0.0-0.2); BASO % 0.8 % (0.0-2.0); EOS # 0.4 K/uL (0.0-0.7); EOS % 5.3 % (0.0-4.0); HEMATOCRIT 40.9 % (35.0-51.0); LYMPH # 1.6 K/uL (1.0-4.3); LYMPH % 20.2 % (20.0-40.0); MEAN CORPUSCULAR HGB CONC 33.4 g/dL (33.0-37.0); MEAN PLATELET VOLUME 7.5 fL (7.2-11.7); MONO # 0.6 K/uL (0.0-0.8); MONO % 8.2 % (0.0-10.0); RED CELL DISTRIBUTION WIDTH 15.9 % (11.5-14.5); WHITE BLOOD COUNT 7.9 K/uL (4.8-10.8)
[2016-08-28 09:16] LABS: MEAN CELL VOLUME 89.7 fL (80.0-94.0)
--- NOTE | 2016-08-28 09:20 | C.PDOC ---
History Of Present Illness 61 y/o M c PMHx STEMI 06/2016 s/p cardiac catheterization at [facility] followed by CABG at [facility] p/w chest pain x 2 weeks since CABG. Patient states that his initial complaint when he had STEMI was a heartburn like pain, which he states has since resolved since the CABG. He complains now of a different chest pain at the site of his CABG scar which is intermittent, sharp, "like a punch," lasting seconds, not occurring daily. Denies fever, cough, nausea, dizziness, diaphoresis. CXR shows no infiltrate or mediastinal air. Elevated L hemidiaphragm. Will discharge home, f/u PMD and cardiology, return for worsening symptoms. Time Seen by Provider: 08/28/16 08:14 Chief Complaint (Nursing): Chest Pain Past Medical History Vital Signs: Last Vital Signs Temp 98.2 F 08/28/16 12:11 Pulse 86 08/28/16 12:11 Resp 18 08/28/16 12:11 BP 138/84 08/28/16 12:11 Pulse Ox 99 08/28/16 12:11 - Medical History PMH: Anxiety, Depression, Gastritis, GERD, HTN, Hypercholesterolemia Denies: Atrial Fibrillation, Cardia Arrhythmia, CHF, Diabetes, Hepatitis, HIV , Mitral Valve Prolapse, Peripheral Edema, Chronic Kidney Disease, Seizures, Sexually Transmitted Disease Surgical History: Denies: Pacemaker - [facility] Procedures DILATION OF 1 COR ART WITH 2 DRUG-ELUT, PERC APPROACH (06/10/16) GROUP PSYCHOTHERAPY (03/23/16) INDIVIDUAL PSYCHOTHERAPY, SUPPORTIVE (03/23/16) MEASURE OF CARDIAC SAMPL & PRESSURE, L HEART, PERC APPROACH (06/10/16) PLAIN RADIOGRAPHY OF LEFT HEART USING OTHER CONTRAST (06/10/16) PLAIN RADIOGRAPHY OF MULT COR ART USING OTH CONTRAST (06/10/16) Family History: States: Unknown Family Hx - Social History Hx Tobacco Use: Yes Hx Alcohol Use: Yes Hx Substance Use: No - Immunization History Hx Tetanus Toxoid Vaccination: No Hx Influenza Vaccination: No Hx Pneumococcal Vaccination: No Review Of Systems Except As Marked, All Systems Reviewed And Found Negative. Constitutional: Negative for: Fever Respiratory: Negative for: Shortness of Breath Physical Exam - Physical Exam Additional Physical Exam Comments: Constitutional: No acute distress. Head: Normocephalic. Atraumatic. Eyes: PERRL. EOMI ENT: Moist mucous membranes. Neck: Supple. Cardiovascular: Regular rate. Radial pulses 2+ bilaterally. Chest: No tenderness. Midline sternotomy scar. Respiratory: Clear to auscultation bilaterally. GI: Soft. Nontender. Nondistended. Back: No CVA tenderness. No midline tenderness. Musculoskeletal: No tenderness or swelling of extremities. Skin: No rash. L leg medial surgical scar. Neurologic: Alert, no focal deficit. ED Course And Treatment - Laboratory Results Result Diagrams: 08/28/16 09:09 08/28/16 09:09 O2 Sat by Pulse Oximetry: 98 Medical Decision Making Medical Decision Making: EKG shows NSR, 77 bpm, Q waves inferiorly, no ST elevations. Pain likely postoperative. Will check 1 set of enzymes for pain for the last 2 weeks but patient likely to be discharged and states he has appointment with PMD today. Disposition - Disposition Disposition: HOME/ ROUTINE Disposition Time: 10:50 Condition: STABLE Prescriptions: Ibuprofen [Motrin] 1 tab PO Q6 #30 tab Instructions: Pain Management After Surgery (GEN), Chest Pain (ED) - POA Core Measure Indicators: Chest Pain - Clinical Impression Clinical Impression: Chest pain
[2016-08-28 09:26] LABS: CHLORIDE 100 mmol/L (98-107); POTASSIUM 3.2 mmol/L (3.6-5.2); SODIUM 141 mmol/L (132-148)
[2016-08-28 09:28] LABS: AST/SGOT 24 U/L (17-59); BILIRUBIN,TOTAL 0.7 mg/dL (0.2-1.3); CARBON DIOXIDE 28 mmol/L (22-30); GFR AFRICAN-AMERICAN > 60
[2016-08-28 09:29] LABS: ALB/GLOB RATIO 1.2 (1.0-2.1); ALKALINE PHOSPHATASE 92 U/L (38-126); ALT/SGPT 12 U/L (21-72); BLOOD UREA NITROGEN 21 mg/dL (9-20); GLUCOSE,RANDOM 132 mg/dL (75-110); TOTAL PROTEIN 7.8 g/dL (6.3-8.3)
[2016-08-28 09:30] LABS: CALCIUM 9.8 mg/dl (8.6-10.4)
--- NOTE | 2016-08-28 12:04 | RAD ---
HISTORY: Chest pain COMPARISON: 06/10/2016 TECHNIQUE: Chest PA and lateral FINDINGS: LUNGS: Biapical pleural thickening with upper lobe granulomatous changes. Elevated left hemidiaphragm. Left basilar atelectasis with trace left pleural effusion. PLEURA: As above. CARDIOVASCULAR: Status post median sternotomy and CABG. Tortuous aorta. OSSEOUS STRUCTURES: Degenerative changes in the spine and shoulders. VISUALIZED UPPER ABDOMEN: Normal. OTHER FINDINGS: None. IMPRESSION: Biapical pleural thickening with upper lobe granulomatous changes. Elevated left hemidiaphragm. Left basilar atelectasis with trace left pleural effusion.
[2016-08-28 12:12] VITALS: BP 138/84; PULSE 86; TEMP 98.2
[2016-08-28 12:16] VITALS: O2SAT 98
--- NOTE | 2016-08-29 12:37 | CARD ---
APPROVED REPORT EKG Measurement Heart [id number] <Conclusion> Normal sinus rhythm Possible Left atrial enlargement Inferior infarct, age undetermined Abnormal ECG
== END 2016-08-28 12:20 | disposition home or self-care (01) ==
LOC: C.ER 07:56
DX: R07.89 Other chest pain (principal)

== ENCOUNTER 2016-12-22 08:22 | Emergency (ER) | payer OTHER ==
[2016-12-22 08:48] VITALS: BMI 31.1
[2016-12-22] MEDS ORDERED: Naproxen 550 mg Tab PO STA (09:13)
[2016-12-22] MEDS ORDERED: Naproxen 550 mg Tab PO ONE (09:20)
--- NOTE | 2016-12-22 09:49 | C.PDOC ---
History Of Present Illness 61 year old male presents to the ED complaining of left sided neck pain for the past 4-6 months. He states that pain radiates down into shoulder and is exacerbated by movement of neck. He also complains of decreased hearing in left ear. Patient denies falls/injuries, rash, fever, sore throat, chest pain, SOB. Time Seen by Provider: 12/22/16 09:00 Chief Complaint (Nursing): Upper Extremity Problem/Injury History Per: Patient History/Exam Limitations: no limitations Onset/Duration Of Symptoms: Days Current Symptoms Are (Timing): Still Present Severity: Moderate Exacerbating Factor(s): Movement Past Medical History Reviewed: Historical Data, Nursing Documentation, Vital Signs Vital Signs: Last Vital Signs Temp 98 F 12/22/16 09:51 Pulse 73 12/22/16 09:51 Resp 18 12/22/16 09:51 BP 149/88 12/22/16 09:51 Pulse Ox 98 12/22/16 09:51 - Medical History PMH: Anxiety, Depression, Gastritis, GERD, HTN, Hypercholesterolemia Surgical History: Denies: Pacemaker - [facility] Procedures DILATION OF 1 COR ART WITH 2 DRUG-ELUT, PERC APPROACH (06/10/16) GROUP PSYCHOTHERAPY (03/23/16) INDIVIDUAL PSYCHOTHERAPY, SUPPORTIVE (03/23/16) MEASURE OF CARDIAC SAMPL & PRESSURE, L HEART, PERC APPROACH (06/10/16) PLAIN RADIOGRAPHY OF LEFT HEART USING OTHER CONTRAST (06/10/16) PLAIN RADIOGRAPHY OF MULT COR ART USING OTH CONTRAST (06/10/16) Family History: States: No Known Family Hx - Social History Hx Tobacco Use: Yes Hx Alcohol Use: Yes Hx Substance Use: Yes - Immunization History Hx Tetanus Toxoid Vaccination: No Hx Influenza Vaccination: No Hx Pneumococcal Vaccination: No Review Of Systems Except As Marked, All Systems Reviewed And Found Negative. Constitutional: Negative for: Fever ENT: Positive for: Other (Decreased hearing left side). Negative for: Throat Pain Respiratory: Negative for: Cough, Shortness of Breath Gastrointestinal: Negative for: Nausea, Vomiting, Abdominal Pain Musculoskeletal: Positive for: Neck Pain, Shoulder Pain Skin: Negative for: Rash Neurological: Negative for: Weakness, Numbness, Headache, Dizziness Physical Exam - Physical Exam Appears: Well, Non-toxic, Other (Mildly uncomfortable) Skin: Normal Color, Warm, Dry, No Rash Head: Atraumatic, Normacephalic Eye(s): bilateral: Normal Inspection, PERRL, EOMI Ear(s): Left: Normal (no cerumen, no erythema, TM normal), Right: Other ( cerumen in ear ) Oral Mucosa: Moist Throat: Normal, No Erythema, No Exudate, No Drooling Neck: No Midline Cervical Tenderness, No Paracervical Tenderness, No Step Off Deformity, Supple, Other (left neck TTP along lateral aspect) Lymphatic: Normal Exam, No Adenopathy Cardiovascular: Rhythm Regular Respiratory: Normal Breath Sounds, No Rales, No Rhonchi, No Wheezing Extremity: Normal ROM (B/L shoulders), No Tenderness, Capillary Refill (< 2 sec all digits ), No Deformity, No Swelling Extremity: Bilateral: Atraumatic, Normal Color And Temperature, Normal ROM Pulses: Left Radial: Normal, Right Radial: Normal Neurological/Psych: Oriented x3, Normal Speech, Normal Cognition, Normal Motor, Normal Sensation Gait: Steady ED Course And Treatment O2 Sat by Pulse Oximetry: 98 (RA) Pulse Ox Interpretation: Normal - Other Rad Cspine Xray X-Ray: Interpreted by Me (no acute fracture), Viewed By Me, Read By Radiologist Interpretation: C4-5 spondylolisthesis, Grade I. stable comp. to 05-23-16 exam. likely degenerative in nature. Written by Jean-Claude Miranda MD on 2016 13:09:02 Progress Note: Patient given PO Naprosyn and Flexeril. Xray of Cspine ordered and reviewed. Reevaluation Time: 09:50 Reassessment Condition: Improved (Patient reassessed, pain has improved and he is feeling better. Patient instructed to follow up with PMD in 1-2 days, and was instructed to get Rx for outpatient cervical MRI from PMD. Rxs given for Naprosyn, Flexeril and he understands he should return to ED if symptoms worsen. Patient also given ENT folloup info at his request.) Disposition Counseled Patient/Family Regarding: Studies Performed, Diagnosis, Need For Followup, Rx Given - Disposition Referrals: [facility] [Outside] Marin uQiroz MD [Staff Provider] - Isidro Lopez MD [Staff Provider] - Disposition: HOME/ ROUTINE Disposition Time: 09:50 Condition: STABLE Additional Instructions: FOLLOW UP WITH YOUR DOCTOR IN 1-2 DAYS USE MEDICATIONS DIRECTED HAVE YOUR DOCTOR SEND YOU FOR OUTPATIENT MRI RETURN TO ER IF SYMPTOMS WORSEN Prescriptions: Cyclobenzaprine [Cyclobenzaprine HCl] 10 mg PO BID PRN #15 tab PRN Reason: Muscle Spasm Naproxen 375 mg PO BID PRN #20 tablet PRN Reason: pain Instructions: Cervical Radiculopathy (ED) Forms: [employer] (Kiswahili) Print Language: CHINESE - POA Present On Arrival: None - Clinical Impression Clinical Impression: Cervical radiculopathy, Hearing loss in left ear
[2016-12-22 09:53] VITALS: BP 149/88; PULSE 73; RESP 18; TEMP 98; O2SAT 98
--- NOTE | 2016-12-22 13:12 | RAD ---
PROCEDURE: Cervical Spine Radiographs. HISTORY: Pain. COMPARISON: None. FINDINGS: BONES: Cervical curvature again seen minimally interrupted by grade 1 spondylolisthesis at C4-5 with C4 slightly posterior C5 once again. This appears to be on the basis of degenerative facet arthropathy as no fracture is grossly evident. Multilevel spondylosis appears advanced a concentrated at the mid cervical levels with prevertebral paraspinal soft tissues appearing diffusely unremarkable. The odontoid process appears intact. SOFT TISSUES: Normal. No prevertebral soft tissue swelling. OTHER FINDINGS: None. IMPRESSION: Stable degenerative disease appreciated relatively advanced at the mid cervical spine with stable grade 1 spondylolisthesis at C4-5 as compared prior cervical spine radiographs 05/23/2016. No definite acute interval findings grossly. MRI or CT are available for follow-up if clinically warranted.
== END 2016-12-22 10:00 | disposition home or self-care (01) ==
LOC: C.ER 08:22
DX: M54.12 Radiculopathy, cervical region (principal); H91.92 Unspecified hearing loss, left ear

== ENCOUNTER 2017-09-17 07:26 | Day surgery (SDC) | payer OTHER ==
[2017-09-17] MEDS ORDERED: Midazolam 2 MG/2 ML VIAL ONE (12:25)
[2017-09-17] MEDS ORDERED: Propofol 10 mg/ml Inj (20 ML) ONE (12:26)
[2017-09-17] MEDS ORDERED: Lidocaine 4% (Laryng-O-Jet) Kit MM ONE (12:26)
[2017-09-17 13:22] VITALS: TEMP 97
[2017-09-17 15:20] VITALS: BP 134/75; PULSE 72; RESP 18; O2SAT 100
== END 2017-09-17 14:50 | disposition home or self-care (01) ==
LOC: C.ENDO 07:26
PROVIDERS: ATTEND Internal Medicine Gastroenterology
DX: K21.0 Gastro-esophageal reflux disease with esophagitis (principal); K22.70 Barrett's esophagus without dysplasia; K29.70 Gastritis, unspecified, without bleeding; E11.9 Type 2 diabetes mellitus without complications; E78.5 Hyperlipidemia, unspecified; Z79.84 Long term (current) use of oral hypoglycemic drugs
CPT/HCPCS: 43239; 82948; 88305; J2250; J2704; J3010

== ENCOUNTER 2018-03-02 13:43 | Emergency (ER) | payer OTHER ==
[2018-03-02 13:43] VITALS: BMI 31.1
[2018-03-02 13:51] VITALS: BP 129/70; PULSE 88; RESP 20; TEMP 97.9; O2SAT 97
--- NOTE | 2018-03-02 14:26 | C.PDOC ---
History Of Present Illness 62 year old male, whose past medical history includes anxiety and depression, presents to the ED for evaluation of insomnia for 2-3 months. Patient reports poor sleep and exercise habits. He tried taking [id number] sleep aids without relief. Patient denies suicidal/homicidal ideation. Time Seen by Provider: 03/02/18 14:08 Chief Complaint (Nursing): Psychiatric Evaluation History Per: Patient History/Exam Limitations: no limitations Onset/Duration Of Symptoms: Other (2-3 months ) Current Symptoms Are (Timing): Still Present Associated Symptoms: denies: Suicidal Thoughts, Suicidal Plan Involuntary Hold By: None Recent travel outside of the [place]: No Additional History Per: Patient Past Medical History Reviewed: Historical Data, Nursing Documentation, Vital Signs Vital Signs: Last Vital Signs Temp 97.9 F 03/02/18 13:49 Pulse 88 03/02/18 13:49 Resp 20 03/02/18 13:49 BP 129/70 03/02/18 13:49 Pulse Ox 97 03/02/18 13:49 - Medical History PMH: Anxiety, Depression, Gastritis, GERD, HTN, Hypercholesterolemia Denies: Atrial Fibrillation, Cardia Arrhythmia, CHF, Diabetes, Hepatitis, Mitral Valve Prolapse, Peripheral Edema, Chronic Kidney Disease, Sexually Transmitted Disease Surgical History: Endoscopy - [facility] Procedures DILATION OF 1 COR ART WITH 2 DRUG-ELUT, PERC APPROACH (06/10/16) GROUP PSYCHOTHERAPY (03/23/16) INDIVIDUAL PSYCHOTHERAPY, SUPPORTIVE (03/23/16) MEASURE OF CARDIAC SAMPL & PRESSURE, L HEART, PERC APPROACH (06/10/16) PLAIN RADIOGRAPHY OF LEFT HEART USING OTHER CONTRAST (06/10/16) PLAIN RADIOGRAPHY OF MULT COR ART USING OTH CONTRAST (06/10/16) Family History: States: Unknown Family Hx - Social History Hx Tobacco Use: Yes Hx Alcohol Use: Yes Hx Substance Use: Yes - Immunization History Hx Tetanus Toxoid Vaccination: No Hx Influenza Vaccination: No Hx Pneumococcal Vaccination: No Review Of Systems Constitutional: Positive for: Other (insomnia ) Psych: Negative for: Suicidal ideation Physical Exam - Physical Exam Appears: Well, Non-toxic, No Acute Distress, Other (cooperative, anxious ) Skin: Normal Color, Warm, Dry Head: Atraumatic, Normacephalic Eye(s): bilateral: Normal Inspection Oral Mucosa: Moist Neck: Supple Chest: Symmetrical, No Deformity, No Tenderness Cardiovascular: Rhythm Regular, No Murmur Respiratory: Normal Breath Sounds, No Rales, No Rhonchi, No Wheezing Extremity: Normal ROM, Capillary Refill (less than 2 seconds ) Neurological/Psych: Oriented x3, Normal Speech, Normal Cognition ED Course And Treatment O2 Sat by Pulse Oximetry: 97 (on RA) Pulse Ox Interpretation: Normal Medical Decision Making Medical Decision Making: chronic insomnia, anxiety poor exercise habits no cardiac s/s diet and sleep hygiene reviewed. ok for opt f/u with psych PRN Disposition Doctor Will See Patient In The: Office Counseled Patient/Family Regarding: Studies Performed, Diagnosis - Disposition Referrals: [facility] [Outside] [facility] [employer] [place] [Outside] [facility] [Outside] [facility] [Outside] Keven Wynn MD [Staff Provider] - Disposition: HOME/ ROUTINE Disposition Time: 14:25 Condition: GOOD Additional Instructions: Sleep Hygiene: avoid caffeine/stimulants Get in bed for SLEEP, get out of bed if not able to sleep do NOT sleep in late (no later than 8AM) Benadryl/"Nightime" sleep meds/Melatonin Follow-up with Dr. Wynn- consider nighttime sleep/anxiety meds as needed. Instructions: Insomnia, What Is a Sleep Study?, Insomnia (DC) Forms: [employer] (Persian) - Clinical Impression Clinical Impression: Insomnia - Scribe Statement The provider has reviewed the documentation as recorded by the Scribe (Nika Combs) Provider Attestation: All medical record entries made by the Scribe were at my direction and personally dictated by me. I have reviewed the chart and agree that the record accurately reflects my personal performance of the history, physical exam, medical decision making, and the department course for this patient. I have also personally directed, reviewed, and agree with the discharge instructions and disposition.
== END 2018-03-02 14:32 | disposition home or self-care (01) ==
LOC: C.ER 13:43
DX: G47.00 Insomnia, unspecified (principal)